=== PATIENT | female | born 1990 | race Caucasian/White ===

== ENCOUNTER 2020-07-10 16:07 | Inpatient (IN) | payer SELFPAY ==
[2020-07-10] MEDS ORDERED: CARBOPROST TROMETHAMINE 250 MCG/ML 1 ML AMP IM PRN (16:30)
[2020-07-10] MEDS: LACTATED RINGERS 1,000 ML IV SCH (16:30)
[2020-07-10] MEDS ORDERED: LIDOCAINE 0.5% (PF) 5 MG/ML (50 ML SDV) SQ PRN (16:30)
[2020-07-10] MEDS ORDERED: METHYLERGONOVINE 0.2 MG/ML 1 ML AMP IM PRN (16:30)
[2020-07-10] MEDS ORDERED: TERBUTALINE 1 MG/ML VIAL SQ PRN (16:30)
[2020-07-10] MEDS ORDERED: OXYTOCIN 10 UNIT/ML 1 ML VIAL IM PRN (16:30)
[2020-07-10] MEDS ORDERED: AMPICILLIN 2,000 MG in SODIUM CHLORIDE 0.9% 100 ML IVPB STA (16:33)
[2020-07-10 16:38] LABS: Basophils % (A) 0 %; Eosinophils # (A) 0.1 k/uL (0-0.7); Eosinophils % (A) 1 %; HCT 34.3 % (34.0-46.0); Lymphocytes # (A) 2.8 k/uL (1.0-4.8); Lymphocytes % (A) 21 %; MCH 26.5 pg (25.0-35.0); MCHC 31.9 g/dL (31.0-37.0); MCV 82.9 fL (80.0-100.0); Mean Platelet Volume 7.3; Monocytes # (A) 0.6 k/uL (0-1.0); Monocytes % (A) 5 %; Neutrophils # (A) 9.5 k/uL (1.3-7.7); Neutrophils % (A) 71 %; Platelet Count 399 k/uL (150-450); Poikilocytosis Slight; RBC 4.14 m/uL (3.80-5.40); RDW 15.5 % (11.5-15.5); WBC 13.4 k/uL (3.8-10.6)
[2020-07-10 16:58] LABS: Appearance,Urine Cloudy (Clear); Bacteria,Urine Rare /hpf; Bilirubin,Urine Negative (Negative); Blood,Urine Large (Negative); Color,Urine Yellow; Glucose,Urine (UA) Negative (Negative); Ketones,Urine Negative (Negative); Leukocyte Esterase,Urine Large (Negative); Mucus,Urine Occasional /hpf; Nitrite,Urine Negative (Negative); Protein,Urine 1+ (Negative); RBC,Urine >182 /hpf (0-5); Specific Gravity,Urine 1.011 (1.001-1.035); Sperm,Urine Rare /hpf; Squamous Epithelial Cell,Urine 1 /hpf (0-4); Urobilinogen,Urine <2.0 mg/dL (<2.0); WBC,Urine 52 /hpf (0-5)
--- NOTE | 2020-07-10 16:58 | P.HPOB ---
History of Present Illness H&P Date: 07/10/20 Chief Complaint: Term , labor This is a 21-year-old 005 that presents to labor and delivery with complaints of regular painful contractions. Patient states she has not received care during this . Patient states other heart disease were uncomplicated with vaginal deliveries. Patient denies loss of fluid or vaginal bleeding. Patient recently moved to the area but had not received care prior to moving to the area. labs are unknown at this time She does deny any history of receiving antibiotics during labor, and is unsure if she had group beta strep with any other pregnancies. Patient states she was diagnosed with COVID-19 approximately 17 days ago Review of Systems Constitutional: Denies chills, Denies fatigue, Denies fever Ears, nose, mouth and throat: Denies headache Cardiovascular: Reports leg edema Respiratory: Denies dyspnea Gastrointestinal: Denies constipation, Denies diarrhea, Denies nausea, Denies vomiting Genitourinary: Reports Past Medical History Past Medical History: No Reported History History of Any Multi-Drug Resistant Organisms: None Reported Additional Past Surgical History / Comment(s): eye sx 2015 Past Anesthesia/Blood Transfusion Reactions: No Reported Reaction Past Psychological History: Anxiety Smoking Status: Current every day smoker - Past Family History Mother Family Medical History: Congestive Heart Failure (CHF), COPD, Thyroid Disorder Medications and Allergies Home Medications Medication Instructions Recorded Confirmed Type No Known Home Medications 07/10/20 07/10/20 History Allergies Allergy/AdvReac Type Severity Reaction Status Date / Time No Known Allergies Allergy Verified 07/10/20 16:23 Exam Osteopathic Statement: *. No significant issues noted on an osteopathic structural exam other than those noted in the History and Physical/Consult. 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 Results Result Diagrams: 07/10/20 16:20 07/10/20 16:20 Abnormal Lab Results - Last 24 Hours (Table) 07/10/20 Range/Units 16:20 WBC 13.4 H (3.8-10.6) k/uL Hgb 11.0 L (11.4-16.0) gm/dL Neutrophils # 9.5 H (1.3-7.7) k/uL Assessment and Plan (1) Term Current Visit: Yes Status: Acute Code(s): Z34.90 - ENCNTR FOR SUPRVSN OF NORMAL , UNSP, UNSP TRIMESTER SNOMED Code(s): 89616634 (2) No care in current Current Visit: Yes Status: Acute Code(s): O09.30 - SUPRVSN OF PREG W INSUFFICIENT ANTENAT CARE, UNSP TRIMESTER SNOMED Code(s): 105860276 Plan: 29-year-old at presumed term gestation ( per patient) presents in active labor. Patient has not received care during this , labs are drawn IV ampicillin is begun. Anticipate spontaneous vaginal delivery.
[2020-07-10 17:04] LABS: Amphetamine Screen,Urine Not Detected (NotDetected); Barbiturate Screen,Urine Not Detected (NotDetected); Benzodiazepines Screen,Urine Not Detected (NotDetected); Cocaine Screen,Urine Not Detected (NotDetected); Methadone Screen, Urine Not Detected (NotDetected); Opiate Screen,Urine Not Detected (NotDetected); Oxycodone Screen, Urine Not Detected (NotDetected); Phencyclidine Screen,Urine Not Detected (NotDetected); Tricyclic Antidepressant,Urine Not Detected (NotDetected); Urn Cannabinoid Scrn Not Detected (NotDetected)
[2020-07-10] MEDS ORDERED: SIMETHICONE 80 MG CHEWABLE PO PRN (17:56)
[2020-07-10] MEDS ORDERED: diphenhydrAMINE 50 MG CAP PO PRN (17:56)
[2020-07-10] MEDS ORDERED: HYDROCORTISONE 2.5% RECTAL CREAM 30 GM TUBE RECTAL PRN (17:56)
[2020-07-10] MEDS ORDERED: ZOLPIDEM 5 MG TAB PO PRN (17:56)
[2020-07-10] MEDS ORDERED: diphenhydrAMINE 50 MG/ML 1 ML VIAL IVP PRN ×2 (17:56)
[2020-07-10] MEDS ORDERED: BENZOCAINE/MENTHOL SPRAY 1 GM/SPRAY AEROSOL TOPICAL PRN (17:56)
[2020-07-10] MEDS ORDERED: LANOLIN CREAM 5 GM TUBE TOPICAL PRN (17:56)
[2020-07-10] MEDS ORDERED: diphenhydrAMINE 25 MG CAP PO PRN (17:56)
[2020-07-10] MEDS ORDERED: OXYTOCIN 30 UNITS/500 ML NS 30 UNIT in SALINE 1 500ML.BAG IV SCH (18:00)
--- NOTE | 2020-07-10 18:00 | P.PROBDLV ---
Vaginal Delivery Note - . Vaginal Delivery Note: This is a 29-year-old 005 at presumed term gestation per patient that presents to labor and delivery with complaints of regular painful contractions. Patient stated contractions started a few hours ago she denied vaginal bleeding or loss of fluid. Patient on admission was noted to be 5 cm with a bulging bag of water, vertex presentation was confirmed with the ultrasound. Patient was admitted to labor and delivery ampicillin was begun. Patient did not receive care prior to presenting to the hospital. Patient denies any concerns with her other prior pregnancies. Patient underwent amniotomy clear fluid was obtained. Patient progressed to complete began pushing and had a normal spontaneous vaginal delivery of a viable female infant at 1649, Apgars of 99 at one and 5 minutes respectively. Weight is pending at this time. After two-minute delayed the umbilical cord is doubly clamped and cut and the was handed to the maternal abdomen. The placenta was delivered spontaneously intact with a three-vessel cord being noted. On inspection the patient's vaginal vault no lacerations were appreciated. The uterus is noted be firm and below the umbilicus. Estimated blood loss 100 mL. Patient and tolerated delivery well and are resting comfortably
[2020-07-10] MEDS: IBUPROFEN 600 MG TAB PO SCH (18:16)
[2020-07-10] MEDS ORDERED: AMPICILLIN 1,000 MG in SODIUM CHLORIDE 0.9% 50 ML IVPB SCH (20:45)
[2020-07-10] MEDS: ACETAMINOPHEN TAB 325 MG TAB PO PRN (20:58)
[2020-07-10] MEDS: SENNOSIDES-DOCUSATE SODIUM 1 EACH TAB PO SCH (20:58)
[2020-07-11] MEDS: IBUPROFEN 600 MG TAB PO SCH ×4 (00:10→20:21)
[2020-07-11 03:12] LABS: Hepatitis B Surface Antigen Non-Reactive (Non-Reactive)
[2020-07-11 06:02] LABS: HIV 2 AB Non-Reactive (Non-Reactive); HIV AB P24 Non-Reactive (Non-Reactive); HIV P24 AG Non-Reactive (Non-Reactive)
[2020-07-11] MEDS: LACTATED RINGERS 1,000 ML IV SCH (06:39)
[2020-07-11] MEDS: ACETAMINOPHEN TAB 325 MG TAB PO PRN ×3 (08:26→23:13)
[2020-07-11] MEDS: SENNOSIDES-DOCUSATE SODIUM 1 EACH TAB PO SCH ×2 (08:27→22:15)
--- NOTE | 2020-07-11 08:59 | P.PNOBGVD ---
Subjective - Subjective Principal diagnosis: PPD 1 MSVD Interval history: Patient is feeling well this morning. She states her pain is controlled with ibuprofen/Tylenol. Her lochia is moderate. She is tolerating a regular diet without nausea or vomiting. Patient reports: Reports appetite normal, Reports voiding normally, Reports pain well controlled, Reports ambulating normally [place]: doing well Objective - Latest Vital Signs Latest vital signs: Vital Signs Temp Pulse Resp BP Pulse Ox 07/11/20 08:00 98.2 F 82 18 139/70 07/11/20 04:00 97.7 F 70 16 117/71 07/11/20 00:00 98.3 F 82 16 140/79 07/10/20 20:02 97.7 F 81 16 133/85 07/10/20 19:33 97.3 F L 70 16 143/84 07/10/20 19:32 97.7 F 70 16 143/84 07/10/20 18:55 71 16 149/87 07/10/20 18:40 82 16 148/83 07/10/20 18:25 94 17 167/88 07/10/20 18:10 98.0 F 77 17 141/87 07/10/20 17:53 65 17 135/89 07/10/20 17:21 97.0 F L 80 17 126/83 98 07/10/20 16:50 97.0 F L 80 17 126/83 98 Intake and Output 07/10/20 07/11/20 07/11/20 22:59 06:59 14:59 Intake Total 487.600 Output Total 100 Balance 387.600 Intake: Intake, IV Titration 487.600 Amount Oxytocin 30 Units/500 ml 487.600 Ns 30 unit In Saline 1 500ml.bag @ Per Protocol IV .Q0M [facility] Rx#:[id number] Output: Estimated Blood Loss 100 Other: # Voids 1 2 2 Weight 81.647 kg - Exam Extremities: Present: normal, edema Abdomen: Present: normal appearance Uterus: Present: normal, firm - Labs Labs: Abnormal Lab Results - Last 24 Hours (Table) 07/10/20 07/10/20 Range/Units 16:20 16:52 WBC 13.4 H (3.8-10.6) k/uL Hgb 11.0 L (11.4-16.0) gm/dL Neutrophils # 9.5 H (1.3-7.7) k/uL Urine Appearance Cloudy H (Clear) Urine Protein 1+ H (Negative) Urine Blood Large H (Negative) Ur Leukocyte Esterase Large H (Negative) Urine RBC >182 H (0-5) /hpf Urine WBC 52 H (0-5) /hpf Urine Bacteria Rare H (None) /hpf Urine Mucus Occasional H (None) /hpf Assessment and Plan (1) Term Current Visit: Yes Status: Acute Code(s): Z34.90 - ENCNTR FOR SUPRVSN OF NORMAL , UNSP, UNSP TRIMESTER SNOMED Code(s): 93139278 (2) No care in current Current Visit: Yes Status: Acute Code(s): O09.30 - SUPRVSN OF PREG W INSUFFICIENT ANTENAT CARE, UNSP TRIMESTER SNOMED Code(s): 311217950 (3) Status post normal vaginal delivery Current Visit: Yes Status: Acute Code(s): LMW4967 - SNOMED Code(s): 617625966 Plan: 29-year-old G6 now P6 status post normal spontaneous vaginal delivery. Patient is doing well this morning. Awaiting social work consult. Patient did discussed with the nurse last night that she is homeless. She does not have custody of all of her children. We will await social work recommendations.
[2020-07-12] MEDS: IBUPROFEN 600 MG TAB PO SCH ×3 (02:19→21:36)
[2020-07-12] MEDS: ACETAMINOPHEN TAB 325 MG TAB PO PRN (08:35)
[2020-07-12 08:54] VITALS: RESP 16
--- NOTE | 2020-07-12 10:43 | P.DS ---
Providers Date of admission: 07/10/20 16:42 Expected date of discharge: 07/12/20 Attending physician: Geovanna Viramontes Primary care physician: Stated None - Discharge Diagnosis(es) (1) No care in current Current Visit: Yes Status: Acute (2) Status post normal vaginal delivery Current Visit: Yes Status: Acute (3) Term Current Visit: Yes Status: Acute Hospital Course: This is a 29-year-old 6 now para 6 woman who presented at term in spontaneous active labor. She had received no care for this . Following admission she underwent an uncomplicated and rapid delivery of a live born female over an intact perineum weighing 7 lbs. 2 oz. with Apgars of 9 at 1 minute and 9 at 5 minutes. The patient's laboratory data returned without abnormalities. Her blood type is Rh+. 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 The patient the had stable vital signs with no evidence of hypertension in the period. She was ambulating and voiding with out difficulty, her lochia is minimal and she denies pain. She is on the therefore discharged home pending discharge of the and CPS and social work evaluation's. Patient Condition at Discharge: Good Plan - Discharge Summary New Discharge Prescriptions: New Ibuprofen [Motrin] 600 mg PO Q6H tab Acetaminophen Tab [Tylenol] 650 mg PO Q4HR PRN tab PRN Reason: Mild Pain Or Fever >= 100.5 Discharge Medication List Acetaminophen Tab [Tylenol] 650 mg PO Q4HR PRN tab 07/12/20 [Rx] Ibuprofen [Motrin] 600 mg PO Q6H tab 07/12/20 [Rx] Follow up Appointment(s)/Referral(s): Geovanna Viramontes DO [Doctor of Osteopathic Medicine] - 4 Weeks Activity/Diet/Wound Care/Special Instructions: Follow-up in the office in 6 weeks . Call with any concerning signs or symptoms including heavy vaginal bleeding, severe abdominal pain, fever gre ater than 101, swelling or redness of the lower extremities, foul vaginal discharge, or signs of depression. Nothing in the vagina for 6 weeks after delivery, specifically no intercourse. Discharge Disposition: HOME SELF-CARE
[2020-07-12 16:31] VITALS: BP 138/83; PULSE 77; TEMP 98.2
[2020-07-12] MEDS: SENNOSIDES-DOCUSATE SODIUM 1 EACH TAB PO SCH (21:38)
[2020-07-14 13:05] LABS: N. gonorrhoeae,PCR Negative (Neg,Equiv); Neisseria Source Urine
[2020-07-14 13:06] LABS: C. trachomatis,PCR Negative (Neg,Equiv); Chlamydia trachomatis Source Urine
== END 2020-07-12 22:00 | disposition home or self-care (01) | DRG 805 ==
LOC: FBPOP 16:07 → 4FBP 16:42
PROVIDERS: ADMIT Obstetrics & Gynecology Obstetrics; ATTEND Obstetrics & Gynecology Obstetrics
PROC: 10E0XZZ Delivery of Products of Conception, External Approach (ICD-10-PCS; principal; 2020-07-10)
DX: O98.52 Other viral diseases complicating childbirth (principal); U07.1 COVID-19; Z37.0 Single live birth; Z3A.00 Weeks of gestation of pregnancy not specified; F17.200 Nicotine dependence, unspecified, uncomplicated; F41.9 Anxiety disorder, unspecified; O99.334 Smoking (tobacco) complicating childbirth; O99.344 Other mental disorders complicating childbirth; Z82.49 Family history of ischemic heart disease and other diseases of the circulatory system; Z82.5 Family history of asthma and other chronic lower respiratory diseases
CPT/HCPCS: 80306; 81001; 82947; 85025; 86762; 86780; 86850; 86900; 86901; 87340; 87390; 87491; 87591; 88307

== ENCOUNTER 2021-09-24 06:21 | Emergency (ER) | payer BC ==
[2021-09-24 06:27] VITALS: TEMP 98.1
[2021-09-24] MEDS ORDERED: HYDROmorphone 1 MG/ML 1 ML SYRINGE IM STA (06:37)
[2021-09-24 07:33] LABS: Appearance,Urine Clear (Clear); Bilirubin,Urine Negative (Negative); Blood,Urine Negative (Negative); Color,Urine Light Yellow; Glucose,Urine (UA) Negative (Negative); Ketones,Urine Negative (Negative); Leukocyte Esterase,Urine Trace (Negative); Mucus,Urine Rare /hpf; Nitrite,Urine Negative (Negative); PH, Urine 6.5 (5.0-8.0); Protein,Urine Negative (Negative); RBC,Urine 1 /hpf (0-5); Specific Gravity,Urine 1.017 (1.001-1.035); Squamous Epithelial Cell,Urine 6 /hpf (0-4); Urobilinogen,Urine <2.0 mg/dL (<2.0); WBC,Urine 2 /hpf (0-5)
--- NOTE | 2021-09-24 07:35 | ED ---
ENT HPI - General Chief complaint: Dental/Oral Stated complaint: Dental Pain, Abd Pain Time Seen by Provider: 09/24/21 06:23 Source: patient Mode of arrival: ambulatory Limitations: no limitations - History of Present Illness Initial comments: 30-year-old female presents emergency Department chief complaint abdominal pain, abdominal pain. Patient states sent in from her week she is scheduled to see the dentist in one week. She states she has impacted, infected right lower molar. She states she worked all night states that she started developing ab dominal discomfort from what she believes is taking Tylenol Motrin. She states the pain is actually improving it's very mild. No fevers or chills no dysuria denies any chance and no diarrhea no constipation. - Related Data Previous Rx's Medication Instructions Recorded Acetaminophen Tab [Tylenol] 650 mg PO Q4HR PRN tab 07/12/20 Ibuprofen [Motrin] 600 mg PO Q6H tab 07/12/20 Ibuprofen [Motrin] 600 mg PO Q8HR PRN #20 tab 09/24/21 Penicillin V Potassium [Pen Vee K] 500 mg PO QID #40 tablet 09/24/21 Allergies Allergy/AdvReac Type Severity Reaction Status Date / Time No Known Allergies Allergy Verified 09/24/21 06:27 Review of Systems ROS Statement: Those systems with pertinent positive or pertinent negative responses have been documented in the HPI. ROS Other: All systems not noted in ROS Statement are negative. Past Medical History Past Medical History: No Reported History History of Any Multi-Drug Resistant Organisms: None Reported Additional Past Surgical History / Comment(s): eye sx 2014 Past Anesthesia/Blood Transfusion Reactions: No Reported Reaction Past Psychological History: Anxiety Smoking Status: Current every day smoker Past Alcohol Use History: None Reported Past Drug Use History: None Reported - Past Family History Mother Family Medical History: Congestive Heart Failure (CHF), COPD, Thyroid Disorder General Exam Limitations: no limitations General appearance: alert, in no apparent distress Head exam: Present: atraumatic, normocephalic, normal inspection Eye exam: Present: normal appearance, PERRL, EOMI. Absent: scleral icterus, conjunctival injection, periorbital swelling ENT exam: Present: mucous membranes moist. Absent: normal exam, normal oropharynx (Dental fracture, impacted right lower, mild erythema no drainable abscess) Neck exam: Present: normal inspection, full ROM. Absent: tenderness, meningismus, lymphadenopathy Respiratory exam: Present: normal lung sounds bilaterally. Absent: respiratory distress, wheezes, rales, rhonchi, stridor Cardiovascular Exam: Present: regular rate, normal rhythm, normal heart sounds. Absent: systolic murmur, diastolic murmur, rubs, gallop, clicks GI/Abdominal exam: Present: soft, tenderness (Very minimal suprapubic), normal bowel sounds. Absent: distended, guarding, rebound, rigid Back exam: Absent: CVA tenderness (R), CVA tenderness (L) Neurological exam: Present: alert, oriented X3 Course Vital Signs 09/24/21 06:22 Temperature 98.1 F Pulse Rate 73 Respiratory 18 Rate Blood Pressure 133/87 O2 Sat by Pulse 100 Oximetry Medical Decision Making - Medical Decision Making Patient was treated for underlying dental infection from dental pain. She does have follow-up with current follow-up with dentist. Patient has negative urinalysis. Patient's abdominal pain is resolving. Patient is comfortable discharged at this time return if symptoms worsen or any other concerns. - Lab Data Lab Results 09/24/21 09/24/21 Range/Units 06:38 06:38 Urine Color Light Yellow Urine Appearance Clear (Clear) Urine pH 6.5 (5.0-8.0) Ur Specific [place] 1.017 (1.001-1.035) Urine Protein Negative (Negative) Urine Glucose (UA) Negative (Negative) Urine Ketones Negative (Negative) Urine Blood Negative (Negative) Urine Nitrite Negative (Negative) Urine Bilirubin Negative (Negative) Urine Urobilinogen <2.0 (<2.0) mg/dL Ur Leukocyte Esterase Trace H (Negative) Urine RBC 1 (0-5) /hpf Urine WBC 2 (0-5) /hpf Ur Squamous Epith Cells 6 H (0-4) /hpf Urine Mucus Rare H (None) /hpf Urine HCG, Qual Not Detected (Not Detectd) Disposition Clinical Impression: Fracture of tooth, Toothache Disposition: HOME SELF-CARE Condition: Stable Instructions (If sedation given, give patient instructions): Toothache (ED) Additional Instructions: Please return to the Emergency Department if symptoms worsen or any other concerns. Prescriptions: Ibuprofen [Motrin] 600 mg PO Q8HR PRN #20 tab PRN Reason: Pain Penicillin V Potassium [Pen Vee K] 500 mg PO QID #40 tablet Is patient prescribed a controlled substance at d/c from ED?: No Referrals: None,Stated [Primary Care Provider] - 1-2 days Time of Disposition: 07:40
[2021-09-24] MEDS ORDERED: ACET/COD 300 MG/30 MG STARTER PACK 6 TAB BTL PO STA (07:38)
[2021-09-24 07:50] VITALS: BP 110/87; PULSE 78; RESP 16
== END 2021-09-24 07:49 | disposition home or self-care (01) ==
LOC: EC 06:21
DX: S02.5XXA Fracture of tooth (traumatic), initial encounter for closed fracture (principal); F17.200 Nicotine dependence, unspecified, uncomplicated; X58.XXXA Exposure to other specified factors, initial encounter
CPT/HCPCS: 81001; 81025; 99284; 96372; J1170

== ENCOUNTER 2022-08-17 21:42 | Emergency (ER) | payer BC, OTHER ==
[2022-08-17 22:05] VITALS: TEMP 98.1
[2022-08-18] MEDS ORDERED: DEXAMETHASONE SOD PHOSPHATE 10 MG/ML 1 ML VIAL IM STA (01:43)
[2022-08-18] MEDS ORDERED: KETOROLAC 15 MG/ML 1 ML VIAL IM STA (01:43)
[2022-08-18] MEDS ORDERED: ORPHENADRINE 30 MG/ML 2 ML VIAL IM STA (01:43)
--- NOTE | 2022-08-18 02:55 | ED ---
Back Pain HPI - General Chief Complaint: Back Pain/Injury Stated Complaint: Sharp Pain in back Time Seen by Provider: 08/18/22 01:28 Source: patient Limitations: no limitations - History of Present Illness Initial Comments: Patient is a 31-year-old female presenting with chief complaint of lower back pain. Pain is been ongoing for 2 days. She denies any distinct injury but does admit to recently lifting a heavy couch. She admits to pain with range of motion. Pain spans across the entire back width. No loss of bowel or bladder control or saddle paresthesia. No dysuria or hematuria. No fevers or chills. No nausea or vomiting. No analgesic medications taken at home. No abdominal pain, chest pain, difficulty breathing. - Related Data Previous Rx's Medication Instructions Recorded Acetaminophen Tab [Tylenol] 650 mg PO Q4HR PRN tab 07/12/20 Ibuprofen [Motrin] 600 mg PO Q6H tab 07/12/20 Ibuprofen [Motrin] 600 mg PO Q8HR PRN #20 tab 09/24/21 Penicillin V Potassium [Pen Vee K] 500 mg PO QID #40 tablet 09/24/21 Cyclobenzaprine [Flexeril] 10 mg PO TID PRN #15 tab 08/18/22 Lidocaine 5% Patch [Lidoderm 5% 1 patch TOPICAL DAILY PRN #30 patch 08/18/22 Patch] Allergies Allergy/AdvReac Type Severity Reaction Status Date / Time No Known Allergies Allergy Verified 09/24/21 06:27 Review of Systems ROS Statement: Those systems with pertinent positive or pertinent negative responses have been documented in the HPI. ROS Other: All systems not noted in ROS Statement are negative. Past Medical History Past Medical History: No Reported History History of Any Multi-Drug Resistant Organisms: None Reported Additional Past Surgical History / Comment(s): eye sx 2015 Past Anesthesia/Blood Transfusion Reactions: No Reported Reaction Past Psychological History: Anxiety Smoking Status: Current every day smoker Past Alcohol Use History: None Reported Past Drug Use History: None Reported - Past Family History Mother Family Medical History: Congestive Heart Failure (CHF), COPD, Thyroid Disorder General Exam Limitations: no limitations General appearance: alert, in no apparent distress Head exam: Present: atraumatic, normocephalic, normal inspection Eye exam: Present: normal appearance, EOMI. Absent: scleral icterus, periorbital swelling Neck exam: Present: normal inspection, full ROM Back exam: Present: normal inspection, paraspinal tenderness Neurological exam: Present: alert, oriented X3, CN II-XII intact Psychiatric exam: Present: normal affect, normal mood Skin exam: Present: warm, dry, intact, normal color. Absent: rash Course Vital Signs 08/17/22 22:02 Temperature 98.1 F Pulse Rate 100 Respiratory 20 Rate Blood Pressure 124/79 O2 Sat by Pulse 99 Oximetry Medical Decision Making - Medical Decision Making Was pt. sent in by a medical professional or institution (, PA, SECURITY GUARDS DISPATCHER, urgent care, hospital, or shelter...) When possible be specific @ -No Did you speak to anyone other than the patient for history (EMS, parent, family, police, friend...)? What history was obtained from this source @ -No Did you review nursing and triage notes (agree or disagree)? Why? @ -I reviewed and agree with nursing and triage notes Were old charts reviewed (outside hosp., previous admission, EMS record, old EKG, old radiological studies, urgent care reports/EKG's, shelter records)? Report findings @ -No old charts were reviewed Differential Diagnosis (chest pain, altered mental status, abdominal pain women, abdominal pain men, vaginal bleeding, weakness, fever, dyspnea, syncope, headache, dizziness, GI bleed, back pain, seizure, CVA, palpatations, mental health, musculoskeletal)? @ - [facility] Differential Back Pain: Strain, zoster, cauda equina syndrome, epidural abscess, vertebral osteomyelitis, discitis, fracture, subluxation, disc herniation, DJD, spinal stenosis, dissection, AAA, pancreatitis, peptic ulcer disease, pyelonephritis, kidney stone this is not meant to be an all-inclusive list. EKG interpreted by me (3pts min.). @ -As above X-rays interpreted by me (1pt min.). @ -None done CT interpreted by me (1pt min.). @ -None done U/S interpreted by me (1pt. min.). @ -None done What testing was considered but not performed or refused? (CT, X-rays, U/S, labs)? Why? @ -None What meds were considered but not given or refused? Why? @ -None Did you discuss the management of the patient with other professionals (professionals i.e. , PA, SECURITY GUARDS DISPATCHER, lab, RT, psych nurse, social services, sewer pipe offbearer, teacher, security officer, case resource manager)? Give summary @ -No Was smoking cessation discussed for >3mins.? @ -No Was critical care preformed (if so, how long)? @ -No Were there social determinants of health that impacted care today? How? (Homelessness, low income, unemployed, alcoholism, drug addiction, transportation, low edu. Level, literacy, decrease access to med. care, fdc, rehab)? @ -No Was there de-escalation of care discussed even if they declined (Discuss DNR or withdrawal of care, Hospice)? DNR status @ -No What co-morbidities impacted this encounter? (DM, HTN, Smoking, COPD, CAD, Cancer, CVA, ARF, Chemo, Hep., AIDS, mental health diagnosis, sleep apnea, morbid obesity)? @ -None Was patient admitted / discharged? Hospital course, mention meds given and route, prescriptions, significant lab abnormalities, going to OR and other pertinent info. @ -Patient is a 31-year-old female presenting with chief complaint of lower back pain. Admits to pain with range of motion. No red flag symptoms. There is paraspinal muscle tenderness on palpation. Patient reports improvement after Toradol, Decadron, and Norflex. She is provided with muscle relaxer for home as well as lidocaine patches. Follow-up with PCP. Report back to ER with any new or worsening symptoms. Discussed return parameters and answered all questions. Patient conveyed verbal understanding and agreed to the plan. I discussed this case in detail with my attending Dr. Andrews Undiagnosed new problem with uncertain prognosis? @ -No Drug Therapy requiring intensive monitoring for toxicity (Heparin, Nitro, Insulin, Cardizem)? @ -No Were any procedures done? @ -No Diagnosis/symptom? @ -Lower back strain Acute, or Chronic, or Acute on Chronic? @ -Acute Uncomplicated (without systemic symptoms) or Complicated (systemic symptoms)? @ -Uncomplicated Side effects of treatment? @ -No Exacerbation, Progression, or Severe Exacerbation? @ -No Poses a threat to life or bodily function? How? (Chest pain, [place], MS, pneumonia, PE, COPD, DKA, ARF, appy, cholecystitis, CVA, Diverticulitis, Homicidal, Suicidal, threat to staff... and all critical care pts) @ -No Disposition Clinical Impression: Strain of lumbar region Disposition: HOME SELF-CARE Condition: Good Instructions (If sedation given, give patient instructions): Acute Low Back Pain (ED) Additional Instructions: Follow-up with PCP. Report back to ER with any new or worsening symptoms. Take medication as prescribed. Do not take cyclobenzaprine before driving or operating heavy machinery as it may cause drowsiness. Prescriptions: Cyclobenzaprine [Flexeril] 10 mg PO TID PRN #15 tab PRN Reason: Spasms Lidocaine 5% Patch [Lidoderm 5% Patch] 1 patch TOPICAL DAILY PRN #30 patch PRN Reason: Pain Is patient prescribed a controlled substance at d/c from ED?: No Referrals: None,Stated [Primary Care Provider] - 1-2 days Time of Disposition: 02:55
[2022-08-18 03:40] VITALS: BP 113/68; PULSE 76; RESP 16
[2022-08-18] MEDS ORDERED: LIDOCAINE 5% PATCH TOPICAL SCH (09:00)
== END 2022-08-18 03:39 | disposition home or self-care (01) ==
LOC: EC 21:42
DX: S39.012A Strain of muscle, fascia and tendon of lower back, initial encounter (principal); F17.200 Nicotine dependence, unspecified, uncomplicated; X50.0XXA Overexertion from strenuous movement or load, initial encounter
CPT/HCPCS: 99283; 96372 ×3; J1100; J2360; J1885

== ENCOUNTER 2022-08-23 15:04 | Emergency (ER) | payer BC, OTHER ==
[2022-08-23 15:17] VITALS: TEMP 98.1
[2022-08-23 16:24] LABS: Anisocytosis Slight; Basophils # (A) 0.1 k/uL (0-0.2); Basophils % (A) 1 %; Eosinophils # (A) 0.2 k/uL (0-0.7); Eosinophils % (A) 3 %; HCT 40.5 % (34.0-46.0); HGB 13.2 gm/dL (11.4-16.0); Lymphocytes # (A) 2.8 k/uL (1.0-4.8); Lymphocytes % (A) 29 %; MCH 26.5 pg (25.0-35.0); MCHC 32.6 g/dL (31.0-37.0); MCV 81.2 fL (80.0-100.0); Mean Platelet Volume 7.1; Monocytes # (A) 0.6 k/uL (0-1.0); Monocytes % (A) 6 %; Neutrophils % (A) 61 %; Platelet Count 367 k/uL (150-450); RBC 4.98 m/uL (3.80-5.40); RDW 16.1 % (11.5-15.5); WBC 9.8 k/uL (3.8-10.6)
--- NOTE | 2022-08-23 16:24 | ED ---
Back Pain HPI - General Chief Complaint: Back Pain/Injury Stated Complaint: UNK WKS -BACK PAIN Time Seen by Provider: 08/23/22 16:02 Source: patient Limitations: no limitations - History of Present Illness Initial Comments: This patient is a 31-year-old woman who presents to have evaluation of low back and low abdomen pain. Patient started having symptoms a little over a week ago and was seen here 6 days ago. At that time she was given nonsteroidal and lidocaine patch. The patient states that on the day following her visit here she checked a test and found that she was positive. She stopped the medications she was given. She states that the back pain did not really improve. She indicates the lumbar area. She states there is pain on both sides but worse on the left. She also is having some pelvic pains greater on the left than right. She started having some spotting over the past day and therefore presents to have evaluation here. MD Complaint: back pain Onset/Timin -: week(s) Similar Symptoms Previously: Yes Place: home Radiation: abdomen Severity: moderate Quality: sharp Consistency: intermittent Improves With: none Worsens With: movement Associated Symptoms: other (Vaginal spotting) Treatments Prior to Arrival: other - Related Data Previous Rx's Medication Instructions Recorded Acetaminophen Tab [Tylenol] 650 mg PO Q4HR PRN tab 07/12/20 Ibuprofen [Motrin] 600 mg PO Q6H tab 07/12/20 Ibuprofen [Motrin] 600 mg PO Q8HR PRN #20 tab 09/24/21 Penicillin V Potassium [Pen Vee K] 500 mg PO QID #40 tablet 09/24/21 Cyclobenzaprine [Flexeril] 10 mg PO TID PRN #15 tab 08/18/22 Lidocaine 5% Patch [Lidoderm 5% 1 patch TOPICAL DAILY PRN #30 patch 08/18/22 Patch] Allergies Allergy/AdvReac Type Severity Reaction Status Date / Time No Known Allergies Allergy Verified 08/23/22 15:17 Review of Systems ROS Statement: Those systems with pertinent positive or pertinent negative responses have been documented in the HPI. ROS Other: All systems not noted in ROS Statement are negative. Constitutional: Denies: fever, chills, weakness Respiratory: Denies: cough, dyspnea Cardiovascular: Denies: chest pain, palpitations, edema Gastrointestinal: Reports: as per HPI. Denies: abdominal pain, nausea, vomiting, diarrhea, constipation Genitourinary: Reports: as per HPI, abnormal menses. Denies: dysuria, hematuria Musculoskeletal: Reports: as per HPI, back pain Skin: Denies: rash Neurological: Denies: headache, weakness Hematological/Lymphatic: Denies: easy bleeding Past Medical History Past Medical History: No Reported History History of Any Multi-Drug Resistant Organisms: None Reported Additional Past Surgical History / Comment(s): eye sx 2015 Past Anesthesia/Blood Transfusion Reactions: No Reported Reaction Past Psychological History: Anxiety Smoking Status: Current every day smoker Past Alcohol Use History: None Reported Past Drug Use History: None Reported - Past Family History Mother Family Medical History: Congestive Heart Failure (CHF), COPD, Thyroid Disorder General Exam Limitations: no limitations General appearance: alert, in no apparent distress Head exam: Present: atraumatic, normocephalic Eye exam: Present: normal appearance. Absent: scleral icterus, conjunctival injection Neck exam: Present: normal inspection, full ROM Respiratory exam: Present: normal lung sounds bilaterally. Absent: respiratory distress, wheezes, rales, rhonchi, stridor Cardiovascular Exam: Present: regular rate, normal rhythm, normal heart sounds. Absent: systolic murmur, diastolic murmur, rubs, gallop GI/Abdominal exam: Present: soft. Absent: distended, tenderness, guarding, rebound, rigid, mass Extremities exam: Present: normal inspection, normal capillary refill. Absent: pedal edema, calf tenderness Back exam: Present: normal inspection, muscle spasm, paraspinal tenderness. Absent: CVA tenderness (R), CVA tenderness (L), vertebral tenderness Neurological exam: Present: alert Skin exam: Present: warm, dry, intact, normal color. Absent: rash Course Vital Signs 08/23/22 08/23/22 15:14 18:02 Temperature 98.1 F Pulse Rate 93 67 Respiratory 20 18 Rate Blood Pressure 113/70 106/66 O2 Sat by Pulse 100 98 Oximetry Medical Decision Making - Medical Decision Making This patient is a 31-year-old woman here with low back pain and some spotting. The patient did have laboratory evaluation and was due to have a pelvic ultrasound, but she became upset with the wait for ultrasound and decided to leave. Was pt. sent in by a medical professional or institution (, PA, COMMUNITY EDUCATION COORDINATOR, urgent care, hospital, or [facility]...) When possible be specific @ -[No] Did you speak to anyone other than the patient for history (EMS, parent, family, police, friend...)? What history was obtained from this source @ -[No] Did you review nursing and triage notes (agree or disagree)? Why? @ -[I reviewed and agree with nursing and triage notes] Were old charts reviewed (outside hosp., previous admission, EMS record, old EKG, old radiological studies, urgent care reports/EKG's, [facility] records)? Report findings @ -[No old charts were reviewed] Differential Diagnosis (chest pain, altered mental status, abdominal pain women, abdominal pain men, vaginal bleeding, weakness, fever, dyspnea, syncope, headache, dizziness, GI bleed, back pain, seizure, CVA, palpatations, mental health, musculoskeletal)? @ -[Differential Back Pain: Strain, zoster, cauda equina syndrome, epidural abscess, vertebral osteomyelitis , discitis, fracture, subluxation, disc herniation, DJD, spinal stenosis, dissection, AAA, pancreatitis, peptic ulcer disease, pyelonephritis, kidney stone, this is not meant to be an all-inclusive list. Differential Abdominal Pain Women: Appendicitis, Cholecystitis, diverticulosis, ischemic bowel, pancreatitis, hepatitis, UTI, gastroenteritis, AAA, incarcerated hernia, bowel obstruction, constipation, inflammatory bowel, hepatitis, peptic ulcer disease, splenic infarction, perforated viscus, vulvitis, ovarian torsion, PID, kidney stone, placenta abruption, this is not meant to be an all-inclusive list EKG interpreted by me (3pts min.). @ -[ X-rays interpreted by me (1pt min.). @ -[None done] CT interpreted by me (1pt min.). @ -[None done] U/S interpreted by me (1pt. min.). @ -[None done] What testing was considered but not performed or refused? (CT, X-rays, U/S, labs)? Why? @ -[None] What meds were considered but not given or refused? Why? @ -[None] Did you discuss the management of the patient with other professionals (professionals i.e. , PA, COMMUNITY EDUCATION COORDINATOR, lab, RT, psych nurse, social media assistant, street openings inspector, teacher, contact officer, case management associate)? Give summary @ -[No] Was smoking cessation discussed for >3mins.? @ -[No] Was critical care preformed (if so, how long)? @ -[No] Were there social determinants of health that impacted care today? How? (Homelessness, low income, unemployed, alcoholism, drug addiction, transportation, low edu. Level, literacy, decrease access to med. care, longterm, rehab)? @ -[No] Was there de-escalation of care discussed even if they declined (Discuss DNR or withdrawal of care, Hospice)? DNR status @ -[No] What co-morbidities impacted this encounter? (DM, HTN, Smoking, COPD, CAD, Cancer, CVA, ARF, Chemo, Hep., AIDS, mental health diagnosis, sleep apnea, morbid obesity)? @ -[ Was patient admitted / discharged? Hospital course, mention meds given and route, prescriptions, significant lab abnormalities, going to OR and other pertinent info. @ -[The patient's left without completing treatment, she was to have ultrasound performed but did not want to wait. Undiagnosed new problem with uncertain prognosis? @ -[No] Drug Therapy requiring intensive monitoring for toxicity (Heparin, Nitro, Insulin, Cardizem)? @ -[No] Were any procedures done? @ -[No] Diagnosis/symptom? @ -[Acute low back pain Acute, or Chronic, or Acute on Chronic? @ -[Acute Uncomplicated (without systemic symptoms) or Complicated (systemic symptoms)? @ -[Uncomplicated Side effects of treatment? @ -[No] Exacerbation, Progression, or Severe Exacerbation? @ -[No] Poses a threat to life or bodily function? How? (Chest pain, [place], [place], pneumonia, PE, COPD, DKA, ARF, appy, cholecystitis, CVA, Diverticulitis, Homicidal, Suicidal, threat to staff... and all critical care pts) @ -[Undetermined - Lab Data Result diagrams: 08/23/22 16:14 08/23/22 16:14 Lab Results 08/23/22 08/23/22 08/23/22 Range/Units 16:14 16:14 16:14 WBC 9.8 (3.8-10.6) k/uL RBC 4.98 (3.80-5.40) m/uL Hgb 13.2 (11.4-16.0) gm/dL Hct 40.5 (34.0-46.0) % MCV 81.2 (80.0-100.0) fL MCH 26.5 (25.0-35.0) pg MCHC 32.6 (31.0-37.0) g/dL RDW 16.1 H (11.5-15.5) % Plt Count 367 (150-450) k/uL MPV 7.1 Neutrophils % 61 % Lymphocytes % 29 % Monocytes % 6 % Eosinophils % 3 % Basophils % 1 % Neutrophils # 6.0 (1.3-7.7) k/uL Lymphocytes # 2.8 (1.0-4.8) k/uL Monocytes # 0.6 (0-1.0) k/uL Eosinophils # 0.2 (0-0.7) k/uL Basophils # 0.1 (0-0.2) k/uL Anisocytosis Slight Sodium 134 L (137-145) mmol/L Potassium 4.6 (3.5-5.1) mmol/L Chloride 104 (98-107) mmol/L Carbon Dioxide 22 (22-30) mmol/L Anion Gap 8 mmol/L BUN 7 (7-17) mg/dL Creatinine 0.50 L (0.52-1.04) mg/dL Est GFR (CKD-EPI)AfAm >90 (>60 ml/min/1.73 sqM) Est GFR (CKD-EPI)NonAf >90 (>60 ml/min/1.73 sqM) Glucose 82 (74-99) mg/dL Calcium 9.0 (8.4-10.2) mg/dL Total Bilirubin 0.4 (0.2-1.3) mg/dL AST 17 (14-36) U/L ALT 13 (4-34) U/L Alkaline Phosphatase 51 (38-126) U/L Total Protein 6.7 (6.3-8.2) g/dL Albumin 3.9 (3.5-5.0) g/dL HCG, Quant mIU/mL Urine HCG, Qual Detected (Not Detectd) 08/23/22 Range/Units 16:46 WBC (3.8-10.6) k/uL RBC (3.80-5.40) m/uL Hgb (11.4-16.0) gm/dL Hct (34.0-46.0) % MCV (80.0-100.0) fL MCH (25.0-35.0) pg MCHC (31.0-37.0) g/dL RDW (11.5-15.5) % Plt Count (150-450) k/uL MPV Neutrophils % % Lymphocytes % % Monocytes % % Eosinophils % % Basophils % % Neutrophils # (1.3-7.7) k/uL Lymphocytes # (1.0-4.8) k/uL Monocytes # (0-1.0) k/uL Eosinophils # (0-0.7) k/uL Basophils # (0-0.2) k/uL Anisocytosis Sodium (137-145) mmol/L Potassium (3.5-5.1) mmol/L Chloride (98-107) mmol/L Carbon Dioxide (22-30) mmol/L Anion Gap mmol/L BUN (7-17) mg/dL Creatinine (0.52-1.04) mg/dL Est GFR (CKD-EPI)AfAm (>60 ml/min/1.73 sqM) Est GFR (CKD-EPI)NonAf (>60 ml/min/1.73 sqM) Glucose (74-99) mg/dL Calcium (8.4-10.2) mg/dL Total Bilirubin (0.2-1.3) mg/dL AST (14-36) U/L ALT (4-34) U/L Alkaline Phosphatase (38-126) U/L Total Protein (6.3-8.2) g/dL Albumin (3.5-5.0) g/dL HCG, Quant 33651.5 mIU/mL Urine HCG, Qual (Not Detectd) Disposition Clinical Impression: Low back pain, Disposition: LEFT AGAINST MEDICAL ADVICE Condition: Undetermined Is patient prescribed a controlled substance at d/c from ED?: No Referrals: None,Stated [Primary Care Provider] - 1-2 days
[2022-08-23 16:34] LABS: ALT 13 U/L (4-34); AST 17 U/L (14-36); African American GFR (CKD) >90 (>60 ml/min/1.73 sqM); Albumin 3.9 g/dL (3.5-5.0); Alkaline Phosphatase 51 U/L (38-126); Anion Gap 8 mmol/L; Blood Urea Nitrogen 7 mg/dL (7-17); Carbon Dioxide 22 mmol/L (22-30); Chloride 104 mmol/L (98-107); Glucose 82 mg/dL (74-99); Non-African American GFR(CKD) >90 (>60 ml/min/1.73 sqM); Potassium 4.6 mmol/L (3.5-5.1); Sodium 134 mmol/L (137-145); Total Bilirubin 0.4 mg/dL (0.2-1.3); Total Protein 6.7 g/dL (6.3-8.2)
[2022-08-23 18:03] VITALS: BP 106/66; PULSE 67; RESP 18
== END 2022-08-23 20:23 | disposition left against medical advice (07) ==
LOC: EC 15:04
DX: O99.891 Other specified diseases and conditions complicating pregnancy (principal); M54.50 Low back pain, unspecified; O99.340 Other mental disorders complicating pregnancy, unspecified trimester; F41.9 Anxiety disorder, unspecified; O99.330 Smoking (tobacco) complicating pregnancy, unspecified trimester; F17.200 Nicotine dependence, unspecified, uncomplicated; Z3A.00 Weeks of gestation of pregnancy not specified; Z53.29 Procedure and treatment not carried out because of patient's decision for other reasons
CPT/HCPCS: 36415; 80053; 81025; 84702; 85025; 99283

== ENCOUNTER 2022-09-27 11:25 | Emergency (ER) | payer BC, OTHER ==
[2022-09-27 11:45] VITALS: RESP 18
[2022-09-27] MEDS ORDERED: LIDOCAINE 5% PATCH TOPICAL ONE (12:34)
[2022-09-27] MEDS ORDERED: ACETAMINOPHEN TAB 500 MG TAB PO STA (12:34)
[2022-09-27 13:16] LABS: Appearance,Urine Cloudy (Clear); Bacteria,Urine Rare /hpf; Bilirubin,Urine Negative (Negative); Blood,Urine Negative (Negative); Color,Urine Yellow; Glucose,Urine (UA) Negative (Negative); Ketones,Urine Negative (Negative); Leukocyte Esterase,Urine Moderate (Negative); Mucus,Urine Rare /hpf; Nitrite,Urine Negative (Negative); Protein,Urine Trace (Negative); RBC,Urine 2 /hpf (0-5); Specific Gravity,Urine 1.015 (1.001-1.035); Squamous Epithelial Cell,Urine 22 /hpf (0-4); Urobilinogen,Urine <2.0 mg/dL (<2.0); WBC,Urine 10 /hpf (0-5)
[2022-09-27] MEDS ORDERED: CIPROFLOXACIN-DEXAMETH 0.3-0.1% DROPS 7.5 ML BTL LEFT EAR STA (13:29)
--- NOTE | 2022-09-27 13:32 | ED ---
ENT HPI - General Chief complaint: ENT Stated complaint: back pain,Ear pain Time Seen by Provider: 09/27/22 12:19 Source: patient, RN notes reviewed Mode of arrival: ambulatory Limitations: no limitations - History of Present Illness Initial comments: This is a 31-year-old female who presents to the emergency department for left ear pain/drainage and left mid back pain. States that the ear pain started about 3 weeks ago. She was on a course of steroids and Augmentin. Believes that pain might have started to improve, but then worsened again. She is also noticing brown drainage coming out of the ear and feels like there is fluid in it. The back pain started this morning. Denies any injuries. Patient is and approximately 11 weeks . She took ibuprofen for her pain which was only mildly beneficial. Denies any urinary symptoms. Denies any fevers, chills, sore throat, cough, dyspnea, chest pain, palpitations, abdominal pain, nausea, vomiting, diarrhea, or headaches. MD complaint: ear pain Onset/Timin -: week(s) Location: L ear - Related Data Previous Rx's Medication Instructions Recorded Acetaminophen Tab [Tylenol] 650 mg PO Q4HR PRN tab 07/12/20 Ibuprofen [Motrin] 600 mg PO Q6H tab 07/12/20 Ibuprofen [Motrin] 600 mg PO Q8HR PRN #20 tab 09/24/21 Penicillin V Potassium [Pen Vee K] 500 mg PO QID #40 tablet 09/24/21 Cyclobenzaprine [Flexeril] 10 mg PO TID PRN #15 tab 08/18/22 Lidocaine 5% Patch [Lidoderm 5% 1 patch TOPICAL DAILY PRN #30 patch 08/18/22 Patch] Cephalexin [Keflex] 500 mg PO Q8HR 7 Days #21 cap 09/27/22 Allergies Allergy/AdvReac Type Severity Reaction Status Date / Time No Known Allergies Allergy Verified 09/27/22 11:40 Review of Systems ROS Statement: Those systems with pertinent positive or pertinent negative responses have been documented in the HPI. ROS Other: All systems not noted in ROS Statement are negative. Past Medical History Past Medical History: No Reported History History of Any Multi-Drug Resistant Organisms: None Reported Additional Past Surgical History / Comment(s): eye sx 2014 Past Anesthesia/Blood Transfusion Reactions: No Reported Reaction Past Psychological History: Anxiety Smoking Status: Current every day smoker Past Alcohol Use History: None Reported Past Drug Use History: None Reported - Past Family History Mother Family Medical History: Congestive Heart Failure (CHF), COPD, Thyroid Disorder General Exam Limitations: no limitations General appearance: alert, in no apparent distress Head exam: Present: atraumatic, normocephalic, normal inspection ENT exam: Present: other (Tenderness to palpation of the left tragus and with movement of the pinna. Canal erythema. No TM erythema or bulging. ) Respiratory exam: Present: normal lung sounds bilaterally. Absent: respiratory distress, wheezes, rales, rhonchi, stridor Cardiovascular Exam: Present: regular rate, normal rhythm, normal heart sounds. Absent: systolic murmur, diastolic murmur, rubs, gallop, clicks Back exam: Present: normal inspection, full ROM. Absent: tenderness Neurological exam: Present: alert, oriented X3, CN II-XII intact Psychiatric exam: Present: normal affect, normal mood Skin exam: Present: warm, dry, intact, normal color. Absent: rash Course Vital Signs 09/27/22 09/27/22 11:40 13:56 Temperature 98.5 F 0 F L Pulse Rate 103 H 101 H Respiratory 18 18 Rate Blood Pressure 131/87 130/86 O2 Sat by Pulse 100 100 Oximetry Medical Decision Making - Medical Decision Making This is a 31-year-old female who presents to the emergency department for back pain and left ear pain. Was pt. sent in by a medical professional or institution? @ -No Did you speak to anyone other than the patient for history? @ -No Did you review nursing and triage notes? @ -Yes, and I agree, it is accurate with regards to the patient's symptoms. Were old charts reviewed? @ -No Differential Diagnosis? @ -Differential Ear Pain: Otitis media, otitis externa, eustachian tube dysfunction, allergic rhinitis, barotrauma, bullous myringitis, this is not meant to be an all-inclusive list. EKG interpreted by me (3pts min.)? @ -Not obtained X-rays interpreted by me (1pt min.)? @ -Not obtained CT interpreted by me (1pt min.)? @ -Not obtained U/S interpreted by me (1pt. min.)? @ -Not obtained What testing was considered but not performed? (CT, X-rays, U/S, labs)? Why? @ -None What meds were considered but not given? Why? @ -None Did you discuss the management of the patient with other professionals? @ -No Did you reconcile home meds? @ -No Was smoking cessation discussed for >3mins.? @ -No Was critical care preformed (if so, how long)? @ -No Were there social determinants of health that impacted care today? How? (Homelessness, low income, unemployed, alcoholism, drug addiction, transportation, low edu. Level, literacy, decrease access to med. care, prison, rehab)? @ -No Was there de-escalation of care discussed even if they declined? (Discuss DNR or withdrawal of care, Hospice)? @ -No What co-morbidities impacted this encounter? (DM, HTN, Smoking, COPD, CAD, Cancer, CVA, Hep., AIDS, mental health diagnosis, sleep apnea, morbid obesity)? @ - Was patient admitted / discharged? @ -Discharged. Physical examination of the left TM reveals canal erythema and she has tenderness with palpation of the tragus and with movement of the pinna, suggestive of otitis externa. Ciprodex drops provided in the emergency department for further management. However, otitis externa does not necessarily explain all of her ear pain symptoms. Advised that she will need to see ENT for further evaluation. Case management tried to make her an appointment, however her insurance requires a referral from her PCP, and the patient is not yet established with a PCP and case management was unable to reach the office for an appointment. Patient is instructed to continue contacting them herself. With regards to the back pain, we did obtained a UA. While this was contaminated, WBCs and bacteria were present and a prescription for Keflex was provided. Shared decision making took place regarding imaging, and because there was no injury and because she is , imaging was deferred. Advised Tylenol as needed for pain relief and she was instructed on the need to avoid NSAIDs like Ibuprofen that she was reportedly taking. Undiagnosed new problem with uncertain prognosis? @ -None Drug Therapy requiring intensive monitoring for toxicity (Heparin, Nitro, Insulin, Cardizem)? @ -None Were any procedures done? @ -None Diagnosis/symptom? @ -Left otitis externa, back pain Acute, or Chronic, or Acute on Chronic? @ -Acute Uncomplicated (without systemic symptoms) or Complicated (systemic symptoms)? @ -Uncomplicated Side effects of treatment? @ -None Exacerbation, Progression, or Severe Exacerbation] @ -Not applicable Poses a threat to life or bodily function? @ -No Return precautions reviewed in depth, the patient is instructed to return to the emergency department with any new, worsening, or concerning symptoms. Patient verbalized understanding. This case was discussed in detail with the attending ED physician, Dr. Carlson. Presentation, findings, and treatment plan discussed in detail as well. - Lab Data Lab Results 09/27/22 Range/Units 12:45 Urine Color Yellow Urine Appearance Cloudy H (Clear) Urine pH 7.0 (5.0-8.0) Ur Specific [place] 1.015 (1.001-1.035) Urine Protein Trace H (Negative) Urine Glucose (UA) Negative (Negative) Urine Ketones Negative (Negative) Urine Blood Negative (Negative) Urine Nitrite Negative (Negative) Urine Bilirubin Negative (Negative) Urine Urobilinogen <2.0 (<2.0) mg/dL Ur Leukocyte Esterase Moderate H (Negative) Urine RBC 2 (0-5) /hpf Urine WBC 10 H (0-5) /hpf Ur Squamous Epith Cells 22 H (0-4) /hpf Urine Bacteria Rare H (None) /hpf Urine Mucus Rare H (None) /hpf Disposition Clinical Impression: Otitis externa, Back pain, Bacteriuria during Disposition: HOME SELF-CARE Instructions (If sedation given, give patient instructions): Earache (ED), Back Pain (ED) Additional Instructions: Return to the emergency department with any new, worsening, or concerning symptoms. Take the antibiotic as prescribed for 7 days. Use the eardrops as 4 drops to the left ear twice daily for 7 days. Follow up with your primary care provider in 1-2 days and discuss a referral to ENT. Make sure you are only taking Tylenol for pain relief. You may also use [id number] creams/gels. Prescriptions: Cephalexin [Keflex] 500 mg PO Q8HR 7 Days #21 cap Is patient prescribed a controlled substance at d/c from ED?: No Referrals: Jin Castillo DO [Doctor of Osteopathic Medicine] - 1-2 days Bakari Larson DO [REFERRING] - 1-2 days (Office is closed due to Holiday, please contact to establish with a Primary Care Provider and for ENT referral.)
[2022-09-27 13:58] VITALS: BP 130/86; PULSE 101; TEMP 0
== END 2022-09-27 13:48 | disposition home or self-care (01) ==
LOC: EC 11:25
DX: H60.92 Unspecified otitis externa, left ear (principal); R82.71 Bacteriuria; M54.9 Dorsalgia, unspecified; F17.200 Nicotine dependence, unspecified, uncomplicated; Z86.59 Personal history of other mental and behavioral disorders
CPT/HCPCS: 81001; 99283

== ENCOUNTER 2023-01-16 19:02 | Emergency (ER) | payer BC, OTHER ==
[2023-01-16 19:14] VITALS: RESP 18
[2023-01-16] MEDS ORDERED: AMOXIC-POT CLAV 875-125MG 1 EACH TAB PO STA (19:47)
[2023-01-16] MEDS ORDERED: KETOROLAC 15 MG/ML 1 ML VIAL IM STA (19:47)
[2023-01-16] MEDS ORDERED: AMOXIC-POT CLAV 875MG STARTER PACK 2 TAB BTL PO STA (19:47)
--- NOTE | 2023-01-16 19:52 | ED ---
ENT HPI - General Chief complaint: Dental/Oral Stated complaint: dental pain Time Seen by Provider: 01/16/23 19:16 Source: patient Mode of arrival: ambulatory Limitations: no limitations - History of Present Illness Initial comments: 32-year-old female presenting with chief complaint of dental pain. Pain is located on the right side. It has been ongoing for several days. Patient is currently unable to get in with tenderness. No difficulty breathing or swallowing. No fevers or neck pain. No drooling or trismus. - Related Data Previous Rx's Medication Instructions Recorded Acetaminophen Tab [Tylenol] 650 mg PO Q4HR PRN tab 07/12/20 Ibuprofen [Motrin] 600 mg PO Q6H tab 07/12/20 Ibuprofen [Motrin] 600 mg PO Q8HR PRN #20 tab 09/24/21 Penicillin V Potassium [Pen Vee K] 500 mg PO QID #40 tablet 09/24/21 Cyclobenzaprine [Flexeril] 10 mg PO TID PRN #15 tab 08/18/22 Lidocaine 5% Patch [Lidoderm 5% 1 patch TOPICAL DAILY PRN #30 patch 08/18/22 Patch] Cephalexin [Keflex] 500 mg PO Q8HR 7 Days #21 cap 09/27/22 Amoxic-Pot Clav 875-125Mg 1 tab PO Q12HR 10 Days #20 tab 01/16/23 [Augmentin 875-125] Allergies Allergy/AdvReac Type Severity Reaction Status Date / Time No Known Allergies Allergy Verified 01/16/23 19:14 Review of Systems ROS Statement: Those systems with pertinent positive or pertinent negative responses have been documented in the HPI. ROS Other: All systems not noted in ROS Statement are negative. Past Medical History Past Medical History: No Reported History History of Any Multi-Drug Resistant Organisms: None Reported Additional Past Surgical History / Comment(s): eye sx 2015 Past Anesthesia/Blood Transfusion Reactions: No Reported Reaction Past Psychological History: Anxiety Smoking Status: Current every day smoker Past Alcohol Use History: None Reported Past Drug Use History: None Reported - Past Family History Mother Family Medical History: Congestive Heart Failure (CHF), COPD, Thyroid Disorder General Exam Limitations: no limitations General appearance: alert, in no apparent distress Head exam: Present: atraumatic, normocephalic, normal inspection Eye exam: Present: normal appearance, EOMI Expanded Mouth exam: Present: tongue normal. Absent: drooling, trismus, muffled voice Teeth exam: Present: dental caries, fractured tooth #, dental tenderness # Throat exam: normal inspection Neck exam: Present: normal inspection, full ROM Respiratory exam: Absent: respiratory distress Neurological exam: Present: alert, oriented X3 Psychiatric exam: Present: normal affect, normal mood Skin exam: Present: warm, dry, intact, normal color. Absent: rash Course Vital Signs 01/16/23 01/16/23 19:13 20:35 Temperature 98.1 F 98.0 F Pulse Rate 107 H 92 Respiratory 18 18 Rate Blood Pressure 148/88 146/84 O2 Sat by Pulse 99 99 Oximetry Medical Decision Making - Medical Decision Making Was pt. sent in by a medical professional or institution (LOUIS Hernandez, PRESSROOM SUPERVISOR, urgent care, hospital, or custodial...) When possible be specific @ -No Did you speak to anyone other than the patient for history (EMS, parent, family, police, friend...)? What history was obtained from this source @ -No Did you review nursing and triage notes (agree or disagree)? Why? @ -I reviewed and agree with nursing and triage notes Were old charts reviewed (outside hosp., previous admission, EMS record, old EKG, old radiological studies, urgent care reports/EKG's, custodial records)? Report findings @ -No old charts were reviewed Differential Diagnosis (chest pain, altered mental status, abdominal pain women, abdominal pain men, vaginal bleeding, weakness, fever, dyspnea, syncope, headache, dizziness, GI bleed, back pain, seizure, CVA, palpatations, mental health, musculoskeletal)? @ -Differential includes toothache, dental abscess, Shaun's angina, this is not an all inclusive list EKG interpreted by me (3pts min.). @ -As above X-rays interpreted by me (1pt min.). @ -None done CT interpreted by me (1pt min.). @ -None done U/S interpreted by me (1pt. min.). @ -None done What testing was considered but not performed or refused? (CT, X-rays, U/S, labs)? Why? @ -None What meds were considered but not given or refused? Why? @ -None Did you discuss the management of the patient with other professionals (professionals i.e. , PA, PRESSROOM SUPERVISOR, lab, RT, psych nurse, social sciences lecturer, area loss prevention manager, teacher, grant officer, pillowcase cleaner)? Give summary @ -No Was smoking cessation discussed for >3mins.? @ -No Was critical care preformed (if so, how long)? @ -No Were there social determinants of health that impacted care today? How? (Homelessness, low income, unemployed, alcoholism, drug addiction, transportation, low edu. Level, literacy, decrease access to med. care, usp, rehab)? @ -No Was there de-escalation of care discussed even if they declined (Discuss DNR or withdrawal of care, Hospice)? DNR status @ -No What co-morbidities impacted this encounter? (DM, HTN, Smoking, COPD, CAD, Cancer, CVA, ARF, Chemo, Hep., AIDS, mental health diagnosis, sleep apnea, morbid obesity)? @ -None Was patient admitted / discharged? Hospital course, mention meds given and route, prescriptions, significant lab abnormalities, going to OR and other pertinent info. @ -32-year-old female presenting with chief complaint of dental pain. On physical examination a fractured tooth is noted is tender on palpation. No brawny induration or midline shift. No trismus or drooling. No difficulty breathing or swallowing. Some swelling to the jaw is noted. Patient will be treated with Augmentin and instructed to follow up with dentist. Follow-up with PCP. Report back to ER with any new or worsening symptoms. Discussed return parameters and answered all questions. Patient conveyed verbal understanding and agreed to the plan. I discussed this case in detail with my attending Dr. Regan Undiagnosed new problem with uncertain prognosis? @ -No Drug Therapy requiring intensive monitoring for toxicity (Heparin, Nitro, Insulin, Cardizem)? @ -No Were any procedures done? @ -No Diagnosis/symptom? @ -dental abscess Acute, or Chronic, or Acute on Chronic? @ -Acute Uncomplicated (without systemic symptoms) or Complicated (systemic symptoms)? @ -Uncomplicated Side effects of treatment? @ -No Exacerbation, Progression, or Severe Exacerbation? @ -No Poses a threat to life or bodily function? How? (Chest pain, USA, MD, pneumonia, PE, COPD, DKA, ARF, appy, cholecystitis, CVA, Diverticulitis, Homicidal, Suicidal, threat to staff... and all critical care pts) @ -No Disposition Clinical Impression: Dental abscess Disposition: HOME SELF-CARE Condition: Good Instructions (If sedation given, give patient instructions): Dental Abscess (ED) Additional Instructions: Please follow up with the [facility] dental clinic. [address] [place] [address]. Phone number for new patients or [phone] for existing patients. Prescriptions: Amoxic-Pot Clav 875-125Mg [Augmentin 875-125] 1 tab PO Q12HR 10 Days #20 tab Is patient prescribed a controlled substance at d/c from ED?: No Referrals: None,Stated [Primary Care Provider] - 1-2 days Time of Disposition: 19:52
[2023-01-16 20:43] VITALS: BP 146/84; PULSE 92; TEMP 98
== END 2023-01-16 20:35 | disposition home or self-care (01) ==
LOC: EC 19:02
DX: K04.7 Periapical abscess without sinus (principal); K03.81 Cracked tooth; F17.200 Nicotine dependence, unspecified, uncomplicated
CPT/HCPCS: 99282; 96372; J1885

== ENCOUNTER 2023-03-08 05:26 | Inpatient (IN) | payer BC, OTHER ==
[2023-03-08] MEDS ORDERED: METHYLERGONOVINE 0.2 MG/ML 1 ML AMP IM PRN (05:42)
[2023-03-08] MEDS ORDERED: CITRIC ACID-SODIUM CITRATE 15 ML CUP PO ONE (05:42)
[2023-03-08] MEDS ORDERED: CARBOPROST TROMETHAMINE 250 MCG/ML 1 ML AMP IM PRN (05:42)
[2023-03-08] MEDS ORDERED: OXYTOCIN 10 UNIT/ML 1 ML VIAL IM PRN (05:42)
[2023-03-08] MEDS ORDERED: TRANEXAMIC 1,000 MG/100ML-NACL 1,000 MG in EMPTY BAG 1 BAG IV PRN (05:42)
[2023-03-08] MEDS ORDERED: miSOPROStoL 200 MCG TAB PO PRN (05:42)
[2023-03-08 06:01] LABS: Basophils # (A) 0.1 k/uL (0-0.2); Basophils % (A) 1 %; Eosinophils # (A) 0.2 k/uL (0-0.7); Eosinophils % (A) 1 %; HCT 26.9 % (34.0-46.0); HGB 8.6 gm/dL (11.4-16.0); Hypochromasia Moderate; Lymphocytes # (A) 3.1 k/uL (1.0-4.8); Lymphocytes % (A) 21 %; MCH 26.9 pg (25.0-35.0); Mean Platelet Volume 8.2; Monocytes # (A) 0.6 k/uL (0-1.0); Monocytes % (A) 4 %; Neutrophils # (A) 10.5 k/uL (1.3-7.7); Neutrophils % (A) 70 %; Platelet Count 280 k/uL (150-450); RDW 14.6 % (11.5-15.5)
[2023-03-08] MEDS ORDERED: fentaNYL (PF) 50 MCG/ML 2 ML AMP ONE (06:03)
[2023-03-08] MEDS ORDERED: MIDAZOLAM 2 MG/2 ML VIAL ONE (06:03)
[2023-03-08] MEDS ORDERED: ONDANSETRON 4 MG/2 ML VIAL ONE (06:03)
[2023-03-08] MEDS ORDERED: OXYTOCIN 30 UNITS/500 ML NS BAG IV ONE (06:03)
[2023-03-08] MEDS ORDERED: SUCCINYLCHOLINE CHLORIDE 200 MG/10 ML VIAL IV ONE (06:03)
[2023-03-08] MEDS ORDERED: DEXAMETHASONE SOD PHOSPHATE 4 MG/ML 1 ML VIAL ONE (06:03)
[2023-03-08] MEDS ORDERED: PROPOFOL 10 MG/ML 20 ML VIAL IV ONE (06:03)
--- NOTE | 2023-03-08 06:45 | P.HPOB ---
History of Present Illness H&P Date: 03/08/23 Chief Complaint: Placental abruption 32-year-old presents at 34 weeks and 5 days about an hour after thinking her water broke but it was actually blood coming out into the toilet. This started at 4:30 this morning and she presented to the hospital around 5:30. Patient is brody every 2-4 minutes. heart tones 140 with some deep variable decelerations to 60. I was called to come assess the patient. When I presented to the hospital the patient was in triage with a Escamilla catheter and IV placed. heart tones were 140 with moderate variability. Cervical exam was 2 cm dilated, 80% effaced, -2 station. Patient was still brody every 1-2 minutes. The blood loss had slowed but was still present. I discussed with the patient her that she was having a placental abruption and was likely to need very quickly. The patient was refusing section at this time stating that she wanted her to come back with her no her what. It is our hospital policy that if the patient is going to be put under general anesthesia that family wait in waiting room. I explained to the patient that though the baby looked like its heart tones were okay at the moment at any moment the heart tones could go down again and not come back up. She was informed her baby could with further delay. This is a patient of Dr. Elia Nelson so I went out to the desk to call him for assistance. He was physically at the desk as he had just arrived, and when informed what was happening, he again explained the situation to the the patient and her who both did give her verbal consent for section under general anesthesia. Review of Systems All systems: negative Constitutional: Denies chills, Denies fever Eyes: denies blurred vision, denies pain Ears, nose, mouth and throat: Denies headache, Denies sore throat Cardiovascular: Denies chest pain, Denies shortness of breath Respiratory: Denies cough Gastrointestinal: Denies abdominal pain, Denies diarrhea, Denies nausea, Denies vomiting Genitourinary: Denies dysuria, Denies hematuria Musculoskeletal: Denies myalgias Integumentary: Denies pruritus, Denies rash Neurological: Denies numbness, Denies weakness Psychiatric: Denies anxiety, Denies depression Endocrine: Denies fatigue, Denies weight change Past Medical History Past Medical History: No Reported History Additional Past Medical History / Comment(s): 6 previous vaginal deliveries. Blood type is O+, antibodies negative, rubella immune, hepatitis B and C negative, HIV nonreactive. History of Any Multi-Drug Resistant Organisms: None Reported Additional Past Surgical History / Comment(s): eye sx 2014 Past Anesthesia/Blood Transfusion Reactions: No Reported Reaction Past Psychological History: Anxiety, Bipolar, Schizophrenia Smoking Status: Current every day smoker Past Alcohol Use History: None Reported Past Drug Use History: None Reported - Past Family History Mother Family Medical History: Congestive Heart Failure (CHF), COPD, Thyroid Disorder Medications and Allergies Home Medications Medication Instructions Recorded Confirmed Type Acetaminophen Tab [Tylenol] 650 mg PO Q4HR PRN tab 07/12/20 Rx Ibuprofen [Motrin] 600 mg PO Q6H tab 07/12/20 Rx Ibuprofen [Motrin] 600 mg PO Q8HR PRN #20 tab 09/24/21 Rx Penicillin V Potassium [Pen Vee K] 500 mg PO QID #40 tablet 09/24/21 Rx Cyclobenzaprine [Flexeril] 10 mg PO TID PRN #15 tab 08/18/22 Rx Lidocaine 5% Patch [Lidoderm 5% 1 patch TOPICAL DAILY PRN #30 patch 08/18/22 Rx Patch] Cephalexin [Keflex] 500 mg PO Q8HR 7 Days #21 cap 09/27/22 Rx Amoxic-Pot Clav 875-125Mg 1 tab PO Q12HR 10 Days #20 tab 01/16/23 Rx [Augmentin 875-125] Allergies Allergy/AdvReac Type Severity Reaction Status Date / Time No Known Allergies Allergy Verified 03/08/23 05:41 Exam Osteopathic Statement: *. No significant issues noted on an osteopathic structural exam other than those noted in the History and Physical/Consult. Intake and Output 03/07/23 03/07/23 03/08/23 14:59 22:59 06:59 Other: Weight 97.976 kg Heart: Regular rate and rhythm Lungs: Clear to auscultation bilaterally Abdomen: Soft, tender but not firm. There is a bruise on the right side of her abdomen about 4 cm in diameter. Patient says she hit her belly on a door a few days ago. Extremities: Negative Homans sign Results Result Diagrams: 03/08/23 05:30 Abnormal Lab Results - Last 24 Hours (Table) 03/08/23 Range/Units 05:30 WBC 15.0 H (3.8-10.6) k/uL RBC 3.20 L (3.80-5.40) m/uL Hgb 8.6 L (11.4-16.0) gm/dL Hct 26.9 L (34.0-46.0) % Neutrophils # 10.5 H (1.3-7.7) k/uL Assessment and Plan (1) Grand multipara Current Visit: Yes Status: Acute Code(s): Z64.1 - PROBLEMS RELATED TO MULTIPARITY SNOMED Code(s): 94316549 (2) 34 weeks gestation of Current Visit: Yes Status: Acute Code(s): Z3A.34 - 34 WEEKS GESTATION OF SNOMED Code(s): 41270739 (3) Placental abruption in third trimester Current Visit: Yes Status: Acute Code(s): O45.93 - PREMATURE SEPARATION OF PLACENTA, UNSP, THIRD TRIMESTER SNOMED Code(s): 977390312 Plan: 1. Stat section under general anesthesia
[2023-03-08] MEDS ORDERED: LANOLIN CREAM 5 GM TUBE TOPICAL PRN (07:04)
[2023-03-08] MEDS ORDERED: diphenhydrAMINE 25 MG CAP PO PRN (07:04)
[2023-03-08] MEDS ORDERED: diphenhydrAMINE 50 MG/ML 1 ML VIAL IVP PRN (07:04)
[2023-03-08] MEDS ORDERED: ONDANSETRON 4 MG/2 ML VIAL IVP PRN (07:04)
[2023-03-08] MEDS ORDERED: ZOLPIDEM 5 MG TAB PO PRN (07:04)
[2023-03-08] MEDS ORDERED: NALOXONE 0.4 MG/ML 1 ML VIAL IV PRN (07:04)
[2023-03-08] MEDS ORDERED: METOCLOPRAMIDE 5 MG/ML 2 ML VIAL IVP PRN (07:04)
[2023-03-08] MEDS ORDERED: OXYTOCIN 30 UNITS/500 ML NS 30 UNIT in SALINE 1 500ML.BAG IV SCH (07:15)
[2023-03-08] MEDS: HYDROmorphone PCA 10 MG/50 ML BAG IV PRN ×2 (07:28→20:33)
--- NOTE | 2023-03-08 08:11 | P.OP ---
Date of Procedure: 03/08/23 Preoperative Diagnosis: #1: 34-5/7 week intrauterine . #2: Nonreassuring heart tones remote from delivery. #3: Clinical placental abruption Postoperative Diagnosis: Same Procedure(s) Performed: Emergent primary low transverse section Anesthesia: NADEEN Surgeon: Elia Nelson Support Staff #1: Leticia Goldman Estimated Blood Loss (ml): 800 Pathology: other (Placenta) Condition: stable Disposition: floor Indications for Procedure: Please see dictated H&P for intimate details of this patient's admission. In brief summary this is a 32-year-old 9 para 6 female who presented to labor and delivery after having onset of vaginal bleeding at 420 this morning. Patient states that she did hit her abdomen apparently a couple days ago. On admission patient's having vaginal bleeding and nonreassuring heart tones, category 3. Dr. Goldman assess the patient immediately recommended proceeding with section however the patient did refuse. Patient states that she would rather have her baby if her partner could not be therefore delivery. Upon my arrival to the unit I instructed the patient that we needed again to proceed with immediate section on the baby could possibly and at this point she consented to emergent section. Patient was therefore taken immediately to the operating room for immediate delivery and did understand risks and benefits. There was approximately 15 minute delay due to the patient's initial refusal for delivery. Operative Findings: This is a viable male infant Apgars 3 at 1 minute 6 and 5 minutes and 9 at 10 minutes. Infant has spontaneous respiration and good cry. There was approximately 1000 mL of placental abruption. Description of Procedure: This patient is immediately taken to the operating room after having a Escamilla catheter placed to straight drain and IV placed. She is laid in supine position. She has abdominal prep and drape. The appropriate timeout is done and after rapid sequence general endotracheal anesthesia a scalpel is taken and a Pfannenstiel skin incision is made. A second scalpel is taken down to the fascia and the fascia scored with a knife. Fascial incision extended bilaterally using the Cooper scissors. Fascia is then dissected off the rectus muscles sharply. Rectus muscles are the peritoneum identified and entered sharply. Peritoneal incision extended superior and inferior without difficulty. Bladder blade is placed. Bladder flap is developed. Scalpels and taken a low transverse uterine incision is made. I then enter the uterine cavity bluntly with a hemostat and there is loss of clear bloody fluid. With fundal pressure the infant's head is delivered through the incision mouth and nares are bulb suctioned and the rest of the infant's body is immediately delivered followed by large blood clots. There is approximately 50% placental abruption in approximately 1000 mL in the uterine cavity. The umbilical cord is immediately cut clamped and the is handed off to the nurses in attendance. The uterus is then externalized. The placenta is removed and sent to pathology. Uterine incision is then demarcated with Butler clamps and closed using 0 Vicryl running locked fashion 2 layers. Excellent hemostasis is noted. The bladder peritoneum was then reapproximated using a 3-0 Vicryl. Excess fluid is removed from the abdomen and pelvis. Uterus, tubes, ovaries appear normal for term gestation. Uterus placed back into the abdomen. The parietal peritoneum was then closed in 0 Vicryl running fashion. Rectus muscle reapproximate 0 Vicryl interrupted fashion. Fascia is then closed using 0 Vicryl in a running fashion. Fascial incision is intact and hemostatic. Subcutaneous tissues and closed using a 3-0 Vicryl. Skin is and closed using virgil. All counts are correct 3. There are no complications. was taken special care for evaluation the mother's taken to her birthing suite in satisfactory condition. We'll plan to proceed with transfusion of 2 units of blood due to hemoglobin of 8.5 prior to surgery and the estimated blood loss of 1800 including the abruption and blood loss itself.
[2023-03-08] MEDS: SENNOSIDES-DOCUSATE SODIUM 1 EACH TAB PO SCH (09:23)
[2023-03-08] MEDS: LACTATED RINGERS 1,000 ML IV SCH ×2 (12:04→16:01)
[2023-03-08] MEDS: ACETAMINOPHEN TAB 500 MG TAB PO SCH ×2 (12:32→16:02)
[2023-03-08 13:41] LABS: Appearance,Urine Clear (Clear); Bilirubin,Urine 1+ (Negative); Blood,Urine Negative (Negative); Color,Urine Yellow; Glucose,Urine (UA) Negative (Negative); Ketones,Urine Negative (Negative); Leukocyte Esterase,Urine Negative (Negative); Nitrite,Urine Negative (Negative); PH, Urine 6.5 (5.0-8.0); Protein,Urine Trace (Negative); Specific Gravity,Urine 1.015 (1.001-1.035); Urobilinogen,Urine 0.2 mg/dL (<2.0)
[2023-03-08 13:46] LABS: Hyaline Casts,Urine 1 /lpf (0-2); Mucus,Urine Rare /hpf; RBC,Urine 1 /hpf (0-5); Squamous Epithelial Cell,Urine 1 /hpf (0-4); WBC,Urine 3 /hpf (0-5)
[2023-03-08 13:47] LABS: Amphetamine Screen,Urine Not Detected (NotDetected); Barbiturate Screen,Urine Not Detected (NotDetected); Benzodiazepines Screen,Urine Not Detected (NotDetected); Cocaine Screen,Urine Not Detected (NotDetected); Methadone Screen, Urine Not Detected (NotDetected); Opiate Screen,Urine Not Detected (NotDetected); Oxycodone Screen, Urine Not Detected (NotDetected); Phencyclidine Screen,Urine Not Detected (NotDetected); Tricyclic Antidepressant,Urine Not Detected (NotDetected); Urn Cannabinoid Scrn Not Detected (NotDetected)
[2023-03-08] MEDS: KETOROLAC 15 MG/ML 1 ML VIAL IVP SCH ×2 (14:03→20:02)
[2023-03-08] MEDS: IBUPROFEN 600 MG TAB PO SCH (14:09)
--- NOTE | 2023-03-08 17:27 | P.MSEPDOC ---
Presenting Problems - Arrival Data Date of Arrival on Unit: 03/08/23 Time of Arrival on Unit: 05:25 Mode of Transport: Ambulatory - Complaint OB-Reason for Admission/Chief Complaint: Rule Out PROM, Vaginal Bleeding, Art Bleeding Medical History - Information : 9 Para: 6 Term: 6 : 0 Abortions: Spontaneous or Elective: 2 Number of Living Children: 6 - Gestational Age Gestational Age by [place] (wks/days): 34 Weeks and 5 Days - History Complications: Smoker Review of Systems - Review of Systems Constitutional: No problems Breast: No problems ENT: No problems Cardiovascular: No problems Respiratory: No problems Gastrointestinal: Diarrhea Genitourinary: No problems Musculoskeletal: No problems Neurological: No problems Skin: No problems Vital Signs - Temperature Temperature: 98.0 F Temperature Source: Oral - Pulse Right Supine Brachial Pulse Rate: 93 Pulse Assessment Method: Automatic Cuff - Respirations Respiratory Rate: 16 Oxygen Delivery Method: Room Air O2 Sat by Pulse Oximetry: 97 - Blood Pressure Right Arm Supine Blood Pressure: 126/85 Blood Pressure Mean: 98 Blood Pressure Source: Automatic Cuff Medical Screen Scoring - Cervical Exam Dilation (cm): 2.5 Effacement (%): 50 Station: -2 Membranes: Ruptured - Uterine Contractions Frequency From (mins): 1 Frequency To (mins): 1 Duration From (seconds): 50 Duration To (seconds): 60 Intensity: Strong Resting: Rigid to palpation - Assessment - Baby A Baseline FHR: 135 Heart Rate - NICHD Category: Category II (Indeterminate) NST: Non-reactive Physician Notification - Physician Notified Physician Notified Date: 03/08/23 Physician Notified Time: 05:36 Physician: Leticia Goldman New Order Received: Yes (Admit, on her way in) Maternal Triage Index - Maternal Triage Index Presenting for scheduled procedure w/no complaint: No - Stat/Priority 1 Stat Priority 1: Yes Provider Notified: Leticia Goldman Provider Notified Time: 05:36 Criteria Met for Priority 1: Signs of uterine rupture, art bleeding Disposition - Disposition OB Disposition: Admit, LDRP Suite I agree with the RN Medical Screening Exam: Yes Case reviewed; plan agreed upon as documented in EMR&OBIX.: Yes Diagnosis: SPOTTING COMPLICATING , THIRD TRIMESTER
[2023-03-09] MEDS: KETOROLAC 15 MG/ML 1 ML VIAL IVP SCH (02:06)
[2023-03-09] MEDS: SIMETHICONE 80 MG CHEWABLE PO PRN ×2 (02:18→07:38)
[2023-03-09] MEDS: ACETAMINOPHEN TAB 500 MG TAB PO SCH ×2 (02:23→12:02)
[2023-03-09] MEDS: SENNOSIDES-DOCUSATE SODIUM 1 EACH TAB PO SCH ×2 (02:25→07:38)
[2023-03-09] MEDS: IBUPROFEN 600 MG TAB PO SCH ×2 (02:25→07:40)
[2023-03-09 04:22] VITALS: RESP 18
--- NOTE | 2023-03-09 06:55 | P.PNOBGPC ---
Subjective - Subjective Patient reports: Reports appetite normal, Reports voiding normally, Reports pain well controlled, Reports ambulating normally : doing well, in NICU, transported Objective - Vital Signs Latest vital signs: Vital Signs Temp Pulse Pulse Resp BP BP Pulse Ox 03/09/23 04:00 98.4 F 84 18 144/77 99 03/09/23 00:00 98.1 F 102 H 17 127/70 97 03/08/23 20:00 98.2 F 95 17 129/69 95 03/08/23 17:27 98.0 F 93 16 126/85 97 03/08/23 15:40 98.0 F 93 16 126/85 97 03/08/23 12:10 96.8 F L 76 76 16 128/82 128/82 100 03/08/23 11:00 96.6 F L 90 16 127/66 100 03/08/23 10:42 96 16 120/80 03/08/23 10:30 96.7 F L 105 H 16 143/83 03/08/23 10:26 96.7 F L 97 16 125/68 97 03/08/23 09:00 97.3 F L 92 16 144/68 99 03/08/23 08:45 97.4 F L 89 16 139/71 99 03/08/23 08:27 83 16 151/77 96 03/08/23 08:25 85 16 151/77 03/08/23 08:15 97.6 F 93 16 129/72 03/08/23 08:06 95 16 129/69 95 03/08/23 07:51 78 16 125/58 96 03/08/23 07:36 98 16 145/88 100 03/08/23 07:23 71 16 151/80 100 03/08/23 07:00 96.5 F L 89 16 109/58 100 Intake and Output 03/08/23 03/08/23 03/09/23 14:59 22:59 06:59 Intake Total 310 Output Total 5725 900 Balance -1487 -900 Intake: Blood Product 310 Rc As-1 Unit 310 [id number] Rc As-1 Unit 0 [id number] Output: Urine 5400 900 Uretheral (Escamilla) 500 Output, Quantitative 325 Blood Loss Other: # Voids 1 3 - Exam Lungs: bilateral: normal Chest: Normal S1, Normal S2 Extremities: Present: normal Abdomen: Present: normal appearance, soft. Absent: distention, tenderness Incision: Present: normal, dry, intact Uterus: Present: normal, firm - Labs Labs: Abnormal Lab Results - Last 24 Hours (Table) 03/08/23 03/08/23 Range/Units 05:30 11:50 Urine Protein Trace H (Negative) Urine Mucus Rare H (None) /hpf Crossmatch See Detail Assessment and Plan Assessment: Postoperative day #1. Patient is feeling well vital signs are stable. She is afebrile. Baby was transferred yesterday secondary to prematurity and apparently started very well so she would like to be discharged to go see the baby. Patient is status post 2 units of blood secondary to large placental abruption and CBC is pending. Patient is ambulating and urinating without difficulty. Plan today is to check CBC, continue routine postoperative care, I'll reevaluate patient lunchtime and felt to be stable for discharge discharge her home at that time. (1) 34 weeks gestation of Current Visit: Yes Status: Acute Code(s): Z3A.34 - 34 WEEKS GESTATION OF SNOMED Code(s): 00016411 (2) Placental abruption in third trimester Current Visit: Yes Status: Acute Code(s): O45.93 - PREMATURE SEPARATION OF PLACENTA, UNSP, THIRD TRIMESTER SNOMED Code(s): 167866022
--- NOTE | 2023-03-09 07:06 | P.DS ---
Providers Date of admission: 03/08/23 05:49 Expected date of discharge: 03/09/23 Attending physician: Elia Nelson Primary care physician: Stated None - Discharge Diagnosis(es) (1) 34 weeks gestation of Current Visit: Yes Status: Acute (2) Placental abruption in third trimester Current Visit: Yes Status: Acute Hospital Course: Please see dictated H&P and delivery summary on this patient's admission. In brief summary this is a 32-year-old 9 para 6 female who presented to labor and delivery with sudden onset of vaginal bleeding and abdominal pain. Patient was immediately diagnosed with a placental abruption and subsequent a taken for emergent primary low transverse section for viable male . Please see dictated operative note She did receive 2 units of packed red blood cells secondary to low starting hemoglobin and the blood loss from her abruption. On post operative day #1 patient is doing very well and due to her baby being transferred requested discharge home. Patient was felt to be stable for discharge home follow up with my office on Tuesday for staple removal. Procedures: Emergent primary low transverse section Patient Condition at Discharge: Good Plan - Discharge Summary New Discharge Prescriptions: New Ibuprofen [Motrin] 600 mg PO Q6H #40 tab Amoxicillin 500 mg PO TID #21 cap oxyCODONE HCL [OxyIR] 5 mg PO Q6HR PRN #18 tab PRN Reason: Pain No Action Ibuprofen [Motrin] 600 mg PO Q6H tab Penicillin V Potassium [Pen Vee K] 500 mg PO QID #40 tablet Cyclobenzaprine [Flexeril] 10 mg PO TID PRN #15 tab PRN Reason: Spasms Lidocaine 5% Patch [Lidoderm 5% Patch] 1 patch TOPICAL DAILY PRN #30 patch PRN Reason: Pain Acetaminophen Tab [Tylenol] 650 mg PO Q4HR PRN tab PRN Reason: Mild Pain Or Fever >= 100.5 Ibuprofen [Motrin] 600 mg PO Q8HR PRN #20 tab PRN Reason: Pain Cephalexin [Keflex] 500 mg PO Q8HR 7 Days #21 cap Amoxic-Pot Clav 875-125Mg [Augmentin 875-125] 1 tab PO Q12HR 10 Days #20 tab Discharge Medication List Acetaminophen Tab [Tylenol] 650 mg PO Q4HR PRN tab 07/12/20 [Rx] Ibuprofen [Motrin] 600 mg PO Q6H tab 04/17/21 [Rx] Ibuprofen [Motrin] 600 mg PO Q8HR PRN #20 tab 09/24/21 [Rx] Penicillin V Potassium [Pen Vee K] 500 mg PO QID #40 tablet 09/24/21 [Rx] Cyclobenzaprine [Flexeril] 10 mg PO TID PRN #15 tab 08/18/22 [Rx] Lidocaine 5% Patch [Lidoderm 5% Patch] 1 patch TOPICAL DAILY PRN #30 patch 08/18/22 [Rx] Cephalexin [Keflex] 500 mg PO Q8HR 7 Days #21 cap 09/27/22 [Rx] Amoxic-Pot Clav 875-125Mg [Augmentin 875-125] 1 tab PO Q12HR 10 Days #20 tab 01/16/23 [Rx] Amoxicillin 500 mg PO TID #21 cap 03/09/23 [Rx] Ibuprofen [Motrin] 600 mg PO Q6H #40 tab 03/09/23 [Rx] oxyCODONE HCL [OxyIR] 5 mg PO Q6HR PRN #18 tab 03/09/23 [Rx] Follow up Appointment(s)/Referral(s): Elia Nelson MD [STAFF PHYSICIAN] - 04/20/23 11:15 am (Post Op Appointment 03-16-2023 at 09:45. Please stop by the office on Tuesday for staple removal as well.) Patient Instructions/Handouts: (DC), Placental Abruption (DC) Activity/Diet/Wound Care/Special Instructions: No heavy lifting or strenuous activity for 6 weeks. No intercourse or anything per vagina for 6 weeks. Please call if any fever, chills, excessive vaginal ble eding, and/or abdominal pain. Please also come to the office this Tuesday for staple removal. Discharge Disposition: HOME SELF-CARE
[2023-03-09 07:40] LABS: Basophils % (A) 0 %; Eosinophils # (A) 0.1 k/uL (0-0.7); Eosinophils % (A) 0 %; HCT 23.9 % (34.0-46.0); HGB 7.9 gm/dL (11.4-16.0); Hypochromasia Moderate; Lymphocytes # (A) 3.7 k/uL (1.0-4.8); Lymphocytes % (A) 21 %; MCH 28.1 pg (25.0-35.0); MCV 85.4 fL (80.0-100.0); Mean Platelet Volume 8.4; Monocytes # (A) 0.9 k/uL (0-1.0); Monocytes % (A) 5 %; Neutrophils # (A) 12.6 k/uL (1.3-7.7); Neutrophils % (A) 71 %; Platelet Count 213 k/uL (150-450); Poikilocytosis Moderate; RDW 15.3 % (11.5-15.5); WBC 17.8 k/uL (3.8-10.6)
[2023-03-09] MEDS ORDERED: FERROUS SULFATE 325 MG TAB PO SCH (09:30)
[2023-03-09 10:40] VITALS: BP 142/80; PULSE 85; TEMP 97.7
--- NOTE | 2023-03-11 11:43 | CDI ---
Documentation Clarification Form Date: 03/11/2023 11:30:11 AM From: Viktoriya Alas Phone: Admit Date: 03/08/2023 05:49:00 AM Patient Name: Kandice Zuñiga Visit Number: [id number] Discharge Date: 03/09/2023 12:40:00 PM ATTENTION: The Clinical Documentation Specialists (CDI) and [facility] Coding Staff appreciate your assistance in clarifying documentation. Please respond to the clarification below the line at the bottom and electronically sign. The CDI & [facility] Coding staff will review the response and follow-up if needed. Please note: Queries are made part of the Legal Health Record. If you have any questions, please contact the author of this message via ITS. Dr. Elia Nelson Your patient has low starting hemoglobin per DC Summary. Please clarify if there is an additional diagnosis related to this value. History/Risk Factors: 32yo F, Placental abruptionin third trimester, 34wks, heart tones 140 with some deep variable decelerations Clinical indicators: Hgb of 8.5 prior to surgery Estimatedblood lossof 1800 including the abruption andblood lossitself Hct 26.9 Treatment: 2 units of packed red blood cells Is there an additional diagnosis and/or clinical significance related to the above lab result/information? [ ] Acute blood loss anemia [ X] Iron deficiency anemia [ ] Other, please specify [ ] Unable to determine (Template Last Revised: April 2020) MTDD
== END 2023-03-09 12:40 | disposition home or self-care (01) | DRG 788 ==
LOC: FBPOP 05:26 → 4FBP 05:49
PROVIDERS: ADMIT Obstetrics & Gynecology; ATTEND Obstetrics & Gynecology
PROC: 30233N1 Transfusion of Nonautologous Red Blood Cells into Peripheral Vein, Percutaneous Approach (ICD-10-PCS; 2023-03-08)
PROC: 10D00Z1 Extraction of Products of Conception, Low, Open Approach (ICD-10-PCS; principal; 2023-03-08 06:08)
DX: O45.93 Premature separation of placenta, unspecified, third trimester (principal); O99.02 Anemia complicating childbirth; O76 Abnormality in fetal heart rate and rhythm complicating labor and delivery; O99.334 Smoking (tobacco) complicating childbirth; F17.210 Nicotine dependence, cigarettes, uncomplicated; D50.9 Iron deficiency anemia, unspecified; Z3A.34 34 weeks gestation of pregnancy; Z28.310 Unvaccinated for COVID-19; Z37.0 Single live birth
CPT/HCPCS: 80306; 81003; 85025; 86850; 86900; 86901; 86920; 99215

== ENCOUNTER → 2023-11-02 | Outpatient (CLI) | payer BC, OTHER ==
--- NOTE | 2023-11-24 08:05 | MR ---
Site ID synapse default Patient Kandice Zuñiga ID [id number] Age/Gender: 33Y, F Order # N/A Procedure MRI LSPINE WO CONTRAST Date 11/02/2023 12:07:41 PM EXAMINATION TYPE: MR lumbar spine wo con DATE OF EXAM: 11/16/2023 COMPARISON: None, please note PACS Production downtime occurred during the radiologist interpretation of these images with limited priors/reports. HISTORY: Low back pain TECHNIQUE: Multiplanar, multisequence images of the lumbar spine were acquired without IV contrast. L1-L2: Normal disc appearance without desiccation. No herniation, protrusion or disc bulging. No ca nal stenosis is present. Foramina are patent bilaterally. L2-L3: Normal disc appearance without desiccation. No herniation, protrusion or disc bulging. No ca nal stenosis is present. Foramina are patent bilaterally. L3-L4: Normal disc appearance without desiccation. No herniation, protrusion or disc bulging. No ca nal stenosis is present. Foramina are patent bilaterally. L4-L5: Normal disc appearance without desiccation. No herniation, protrusion or disc bulging. No ca nal stenosis is present. Foramina are patent bilaterally. L5-S1: Central disc protrusion with mild effacement of the anterior thecal sac (series 601, image 2). No clear abutment of the exiting nerve roots. Foramina are patent bilaterally. Lumbar segments are intact. No paraspinal masses are identified. Conus medullaris has a normal appe arance. IMPRESSION: L5-S1 disc herniation with mild central canal stenosis. No clear abutment of the surrounding nerve ro ots.
== END | disposition home or self-care (01) ==
LOC: RADMRIMAIN 12:50
PROVIDERS: ATTEND Orthopaedic Surgery
DX: M47.816 Spondylosis without myelopathy or radiculopathy, lumbar region (principal); M51.27 Other intervertebral disc displacement, lumbosacral region; M48.061 Spinal stenosis, lumbar region without neurogenic claudication
CPT/HCPCS: 72148

== ENCOUNTER → 2023-12-27 | Outpatient (CLI) | payer OTHER ==
--- NOTE | 2023-12-27 07:51 | US ---
EXAMINATION TYPE: US venous doppler duplex LE BI DATE OF EXAM: 12/27/2023 7:35 AM COMPARISON: NONE CLINICAL INDICATION: Female, 33 years old with history of R60.0 LOCALIZED EDEMA; Bilateral lower extr emity swelling x 1 week. Hx swelling post pregnancies - most recent 02/2023; JAN; Smoker SIDE PERFORMED: Bilateral TECHNIQUE: The lower extremity deep venous system is examined utilizing real time linear array sonog bahman with graded compression, color doppler sonography, and spectral doppler. VESSELS IMAGED: Common Femoral Vein Deep Femoral Vein Greater Saphenous Vein * Femoral Vein Popliteal Vein Small Saphenous Vein * Proximal Calf Veins (* superficial vessels) Right Leg: Negative for DVT Left Leg: Negative for DVT IMPRESSION: Grayscale, color doppler, spectral doppler imaging performed of the deep veins of the lo wer extremities. There is normal flow, compressibility, vascular waveforms. [facility], , 12/27/2023 7:49 AM
== END | disposition home or self-care (01) ==
LOC: RADUSWWP 07:15
PROVIDERS: ATTEND Internal Medicine
DX: R60.0 Localized edema
CPT/HCPCS: 93970

== ENCOUNTER → 2024-01-02 | Outpatient (CLI) | payer OTHER ==
[2024-01-02 11:34] VITALS: BP 133/95; PULSE 96; RESP 16; TEMP 97.1
--- NOTE | 2024-01-02 15:07 | P.PAINPG ---
PQRS Measure Charge Sheet Comment: HISTORY OF PRESENT ILLNESS: A 33 yr old female w daughter at side as a referral from [facility] presents today w severe and chronic LBP > 3 mo secondary to radiculopathy, spondylosis and facet arthropathy without myelopathy for evaluation. Pt states pain level is provoked at 9 /10 in intensity, constant, localized in the L lumbar, predominantly axial, tender in character w occasional shooting pain towards the L hip and LLE. Pain is provoked by lifting and rotation. Pain is alleviated by PT x 4 wks which ended in Oct 2023, physician guided home exercises 4 weekly since Oct 2023, ice, medications ([place], Ibu), Lidoderm topical, repositioning and rest . PMH: OA, Anxiety/ Bipolar/ Schizophrenia PSH: (2022), Eye Surgery (2014) SH: Daily tobacco use, Vape use, No ETOH abuse, No illicit drug use FH: Mo- CHF, COPD All: See list Meds: See list REVIEW OF ORGAN SYSTEMS: CONSTITUTIONAL: No fevers or chills. No recent weight loss. NEUROLOGICAL: + numbness and tingling along the distal extremities. No seizure disorders or headaches. MUSCULOSKELETAL: + pain PSYCHIATRIC: Denies current depression or suicidal thoughts. Physical Examinations : Constitutional : Cooperative , not in acute distress . Neurologic : Cranial nerve II to XII intact. No focal neurological deficits. Psychiatric : alert & oriented x 3. Matching mood & appropriate affect. Judgment & insight intact. Musculoskeletal : Cervical Spine Motor strength in the deltoid and biceps: Normal right side. Normal Left side Motor strength biceps and the wrist extensors: Normal right side . Normal left side Motor strength in the triceps muscle: Normal right side. Normal left side Deep tendon reflexes: Normal at the biceps. Normal at Brachioradialis. Normal at triceps Vertebral body tenderness to deep palpation over Cervical facet loading test: positive bilaterally Spurling test: positive bilaterally Neck distraction test: positive bilaterally Boy sign: positive bilaterally Lumbar spine Motor strength lower extremities ,thigh and legs 5/5 Right side , 5/5 Left side Deep tendon reflexes : Normal Knee Jerk. Normal Ankle Jerk Vertebral body tenderness over L5 Farnsworth Test positive BL L5-S1 Lumbar facet Loading Test: positive Right / positive Left Range of motion of the lumbar spine Flexion 30 degrees, extension 10 degrees Straight Leg Raise test: Left/ Right positive at degrees Doroteo test: positive right / positive left. Severe tenderness over the Sacroiliac joint on the Right / Left sides Gaenslen test: positive bilaterally Seated flexion test: positive bilaterally. Sacral spine : Severe tenderness over the Sacroiliac joint: right side / left side Range of motion: Flexion of the lumbar spine <60 degrees Range of motion: Extension of the lumbar spine <20 degrees Gaenslen's Test positive Doroteo test: positive right side / left side Thigh Thrust Test Sacral Thrust Test Imaging: MRI non contrast lumbar spine from 11/02/23 reviewed Assessment/ Plan : L5-S1 radiculopathy Recommendation of RJ L5-S1 #1. Risks, benefits of procedure discussed and patient verbalized understanding. Admits to anti- coagulant use or medical history of diabetes. Protocol for discontinuation/ continuation of medications justin procedure discussed. All questions answered. I have spent greater than 30 minutes on patient care today. Dr Jean Baptiste was available by phone for the evaluation of this patient. The time was used to review the medical records including relevant urine studies and Prescription history (MAPs), review of the available imaging, evaluation and examination of the patient, coordination of care with the medical staff and if applicable referring physicians, as well as creation of the medical record Home Medications: Ambulatory Orders Acetaminophen Tab [Tylenol] 650 mg PO Q4HR PRN tab 07/12/20 Ibuprofen [Motrin] 600 mg PO Q6H tab 07/12/20 Ibuprofen [Motrin] 600 mg PO Q8HR PRN #20 tab 09/24/21 Penicillin V Potassium [Pen Vee K] 500 mg PO QID #40 tablet 09/24/21 Cyclobenzaprine [Flexeril] 10 mg PO TID PRN #15 tab 08/18/22 Lidocaine 5% Patch [Lidoderm 5% Patch] 1 patch TOPICAL DAILY PRN #30 patch 08/18/22 Cephalexin [Keflex] 500 mg PO Q8HR 7 Days #21 cap 09/27/22 Amoxic-Pot Clav 875-125Mg [Augmentin 875-125] 1 tab PO Q12HR 10 Days #20 tab 01/16/23 Amoxicillin 500 mg PO TID #21 cap 03/09/23 Ferrous Sulfate [Iron (65 MG Elemental)] 325 mg PO BID-W/MEALS #60 tab 03/09/23 Ibuprofen [Motrin] 600 mg PO Q6H #40 tab 03/09/23 oxyCODONE HCL [OxyIR] 5 mg PO Q6HR PRN #18 tab 03/09/23 Controlled Substance Measures - Controlled Substance Measures Is patient prescribed a controlled substance at discharge?: No
== END | disposition home or self-care (01) ==
LOC: PNWHC3 10:50
PROVIDERS: ATTEND Specialist
DX: M47.26 Other spondylosis with radiculopathy, lumbar region (principal); F17.290 Nicotine dependence, other tobacco product, uncomplicated
CPT/HCPCS: 99211

== ENCOUNTER 2024-01-20 10:54 | Day surgery (SDC) | payer OTHER ==
[2024-01-19 09:54] VITALS: BMI 39.9
[~2024-01-20 10:54] MED LIST: LACTATED RINGERS 1,000 ML IV SCH
[2024-01-20 11:23] VITALS: RESP 16; TEMP 97.3
[2024-01-20] MEDS ORDERED: IOPAMIDOL M200 10 ML VIAL ONE (12:08)
[2024-01-20] MEDS ORDERED: methylPREDNISolone ACETATE 80 MG/ML 1 ML VIAL ONE (12:08)
--- NOTE | 2024-01-20 12:08 | P.PCN ---
Date of Procedure: 01/20/24 Procedure(s) Performed: PREOPERATIVE DIAGNOSIS: 1- Lumbar herniated disc Diseases 2-Lumbar radiculopathy. POSTOPERATIVE DIAGNOSIS: Same as preop diagnosis. PROCEDURE 1. Lumbar epidural steroid injection under fluoroscopic guidance at the L5-S1 level. (Fluoroscopy imaging was available in radiology department) 2. Lumbar epidurogram. ANESTHESIA: Lidocaine 1% 3 and then only. EBL: Minimal PROCEDURE INDICATION: The patient with low back pain and radiculitis symptoms unresponsive to conservative treatment. Fluoroscopy was used to optimize visualization of the needle placement and to maximize safety. PROCEDURE DESCRIPTION / TECHNIQUE: The patient was seen and identified in the preoperative area. Risks, benefits, complications including but not limited to infections ,bleeding ,allergic reaction to the medications ,nerve damage and not complete pain releife , and alternatives were discussed with the patient. The patient agreed to proceed with the procedure and signed the consent, and vital signs were stable. Patient was taken to the OR and time out was completed. The patient was placed in the prone position on procedure table and a pillow was placed under the abdomen to reduce lumbar lordosis. The lumbosacral area was prepped and draped in the usual sterile fashion.ere closely monitored during the procedure. Vital signs was monitered during the entire procedure. Using anterior-posterior fluoroscopy, the L5-S1 interlaminar space was identified and the skin over this site was marked and then infiltrated with 1% lidocaine subcutaneously. Subsequently, a 20-gauge Tuohy epidural needle was inserted and advanced toward the epidural space using the ``Loss of resistance technique and guided by AP and lateral fluoroscopy. The correct needle position in the epidural space was verified with the injection of 2 mL of the water soluble contrast dye Isovue 200 contrast and observing an excellent epidurogram with the epidural spread of the dye, after negative aspiration for blood and CSF and in the absence of paresthesias. Again after negative aspiration, a 6 ml mixture containing 80 mg of Depo-medrol ( Preservetive Free ), and 2 ml of preservative free Normal Saline, and 2 ml of preservative free lidocaine 1% solution was injected and a washout of epidurogram was seen. Needle was withdrawn intact, skin was cleansed, and bandages were applied. COMPLICATIONS: None DISPOSITION / PLANS: The patient was placed in a supine position and transferred to the recovery area in a stable condition for observation. There was no evidence of lower extremity motor or sensory deficit after the procedure. Patient was discharged from the recovery room after meeting discharge criteria. Home discharge instructions were given to the patient by the staff. The patient was reexamined prior to discharge. The patient will schedule a follow up in the clinic in 2-4 weeks.
--- NOTE | 2024-01-20 12:19 | FL ---
Fluoroscopy History: Lumbar Epid Inj lesi fl time 2 sec dap [id number] [facility], , 01/20/2024 12:16 PM
[2024-01-20 12:32] VITALS: BP 128/89; PULSE 88
== END 2024-01-20 12:40 | disposition home or self-care (01) ==
LOC: ORPAIN 10:54
PROVIDERS: ATTEND Specialist
DX: M51.16 Intervertebral disc disorders with radiculopathy, lumbar region (principal); Z79.1 Long term (current) use of non-steroidal anti-inflammatories (NSAID)
CPT/HCPCS: 81025; 62323; Q9966; J1010

== ENCOUNTER 2024-01-30 15:35 | Inpatient (IN) | payer MEDICAID, OTHER ==
--- NOTE | 2024-01-30 17:55 | ED ---
General Adult HPI - General Chief complaint: Psychiatric Symptoms Stated complaint: mental health Time Seen by Provider: 01/30/24 16:05 Source: patient, RN notes reviewed, old records reviewed Mode of arrival: ambulatory Limitations: no limitations - History of Present Illness Initial comments: This is a 33-year-old female who presents to the emergency department stating that she hears voices and has for years however lately they have becoming worse and she is hearing people who are bad people in her prior life and they are telling her things such that her kids are not really her kids and it is driving her crazy to the point where she is considering harming herself. Patient denies any drinking or drug use today. Patient states she was at another facility for the same thing 2 days ago and they discharged her and she states her desire to harm herself is just getting worse. Patient denies any physical complaints today. - Related Data Home Medications Medication Instructions Recorded Confirmed Cyclobenzaprine [Flexeril] 5 mg PO TID 01/19/24 01/30/24 HYDROcodone/APAP 10-325MG [[place] 1 tab PO BID 01/19/24 01/30/24 10-325] Pregabalin [Lyrica] 150 mg PO BID 01/19/24 01/30/24 Ferrous Sulfate [Feosol] 325 mg PO DAILY 01/30/24 01/30/24 Naproxen [Naprosyn] 500 mg PO BID-W/MEALS PRN 01/30/24 01/30/24 QUEtiapine FUMARATE [SEROquel XR] 150 mg PO BID 01/30/24 01/30/24 Allergies Allergy/AdvReac Type Severity Reaction Status Date / Time No Known Allergies Allergy Verified 01/30/24 17:39 Review of Systems ROS Statement: Those systems with pertinent positive or pertinent negative responses have been documented in the HPI. ROS Other: All systems not noted in ROS Statement are negative. Past Medical History Past Medical History: No Reported History Additional Past Medical History / Comment(s): CHRONIC BACK PAIN History of Any Multi-Drug Resistant Organisms: None Reported Past Surgical History: Section Additional Past Surgical History / Comment(s): eye sx 2014, Past Anesthesia/Blood Transfusion Reactions: No Reported Reaction Past Psychological History: Anxiety, Bipolar, Schizophrenia Smoking Status: Former smoker Past Alcohol Use History: None Reported Past Drug Use History: None Reported - Past Family History Mother Family Medical History: Congestive Heart Failure (CHF), COPD, Thyroid Disorder General Exam - General Exam Comments Initial Comments: GENERAL: Patient is well-developed and well-nourished. Patient is nontoxic and well- hydrated and is in no acute distress. ENT: Neck is soft and supple. No significant lymphadenopathy is noted. Oropharynx is clear. Moist mucous membranes. Neck has full range of motion without eliciting any pain. EYES: The sclera were anicteric and conjunctiva were pink and moist. Extraocular movements were intact and pupils were equal round and reactive to light. Eyelids were unremarkable. PULMONARY: Unlabored respirations. Good breath sounds bilaterally. No audible rales rhonchi or wheezing was noted. CARDIOVASCULAR: There is a regular rate and rhythm without any murmurs gallops or rubs. ABDOMEN: Soft and nontender with normal bowel sounds. SKIN: Skin is clear with no lesions or rashes and otherwise unremarkable. NEUROLOGIC: Patient is alert and oriented x3. Cranial nerves II through XII are grossly intact. Motor and sensory are also intact. Normal speech, volume and content. Symmetrical smile. MUSCULOSKELETAL: Normal extremities with adequate strength and full range of motion. No lower extremity swelling or edema. No calf tenderness. LYMPHATICS: No significant lymphadenopathy is noted PSYCHIATRIC: Patient states she is suicidal Limitations: no limitations Course Vital Signs 01/30/24 16:02 Temperature 98.2 F Pulse Rate 98 Respiratory 18 Rate Blood Pressure 129/85 O2 Sat by Pulse 99 Oximetry Medical Decision Making - Medical Decision Making Was pt. sent in by a medical professional or institution (, [facility], CONTROL CENTER OPERATOR, urgent care, hospital, or group home...) When possible be specific @ -[No] Did you speak to anyone other than the patient for history (EMS, parent, family, police, friend...)? What history was obtained from this source @ -[No] Did you review nursing and triage notes (agree or disagree)? Why? @ -[I reviewed and agree with nursing and triage notes] Were old charts reviewed (outside hosp., previous admission, EMS record, old EKG, old radiological studies, urgent care reports/EKG's, group home records)? Report findings @ -[No old charts were reviewed] Differential Diagnosis? @ -Differential Mental Health Depression, anxiety, bipolar, psychosis, schizophrenia, borderline personality, situational depression, adjustment disorder, behavioral disorder, brain tumor, malingering, substance abuse, encephalopathy, medication reaction, dementia, hypothyroidism, degenerative neurologic disorder, lupus.... This is not meant to be all-inclusive list EKG interpreted by me (3pts min.). @ -[As above] X-rays interpreted by me (1pt min.). @ -[None done] CT interpreted by me (1pt min.). @ -[None done] U/S interpreted by me (1pt. min.). @ -[None done] What testing was considered but not performed or refused? (CT, X-rays, U/S, labs)? Why? @ -[None] What meds were considered but not given or refused? Why? @ -[None] Did you discuss the management of the patient with other professionals (professionals i.e. , PA, CONTROL CENTER OPERATOR, lab, RT, psych nurse, vp digital marketing social media and crm, wheel tuner, teacher, officer lieutenant, hospice case manager)? Give summary @ -EPS evaluated the patient and determined the patient need to be admitted patient will be admitted to the psychiatric floor under a voluntary basis Was smoking cessation discussed for >3mins.? @ -[No] Was critical care preformed (if so, how long)? @ -[No] Were there social determinants of health that impacted care today? How? (Homelessness, low income, unemployed, alcoholism, drug addiction, transportation, low edu. Level, literacy, decrease access to med. care, custodial, rehab)? @ -[No] Was there de-escalation of care discussed even if they declined (Discuss DNR or withdrawal of care, Hospice)? DNR status @ -[No] What co-morbidities impacted this encounter? (DM, HTN, Smoking, COPD, CAD, Cancer, CVA, ARF, Chemo, Hep., AIDS, mental health diagnosis, sleep apnea, morbid obesity)? @ -[None] Was patient admitted / discharged? Hospital course, mention meds given and route, prescriptions, significant lab abnormalities, going to OR and other pertinent info. @ -I spoke with the EPS Undiagnosed new problem with uncertain prognosis? @ -[No] Drug Therapy requiring intensive monitoring for toxicity (Heparin, Nitro, Insulin, Cardizem)? @ -[No] Were any procedures done? @ -[No] Diagnosis/symptom? @ -Suicidal ideations Acute, or Chronic, or Acute on Chronic? @ -Acute Uncomplicated (without systemic symptoms) or Complicated (systemic symptoms)? @ -[default] Side effects of treatment? @ -[No] Exacerbation, Progression, or Severe Exacerbation? @ -[No] Poses a threat to life or bodily function? How? (Chest pain, [place], [place], pneumonia, PE, COPD, DKA, ARF, appy, cholecystitis, CVA, Diverticulitis, Homicidal, Lim icidal, threat to staff... and all critical care pts) @ -Yes this could lead to suicide attempt and - Lab Data Lab Results 01/30/24 Range/Units 17:15 Urine Opiates Screen Not Detected (NotDetected) Ur Oxycodone Screen Not Detected (NotDetected) Urine Methadone Screen Not Detected (NotDetected) Ur Barbiturates Screen Not Detected (NotDetected) U Tricyclic Antidepress Not Detected (NotDetected) Ur Phencyclidine Scrn Not Detected (NotDetected) Ur Amphetamines Screen Not Detected (NotDetected) U Methamphetamines Scrn Not Detected (NotDetected) U Benzodiazepines Scrn Not Detected (NotDetected) Urine Cocaine Screen Detected H (NotDetected) U Marijuana (THC) Screen Not Detected (NotDetected) Disposition Clinical Impression: Depression, Suicidal ideation Disposition: ADMITTED IP TO THIS [facility] Referrals: Nonstaff,Physician [Primary Care Provider] - 1-2 days Time of Disposition: 19:05
[2024-01-30 18:10] LABS: Amphetamine Screen,Urine Not Detected (NotDetected); Barbiturate Screen,Urine Not Detected (NotDetected); Benzodiazepines Screen,Urine Not Detected (NotDetected); Cocaine Screen,Urine Detected (NotDetected); Methadone Screen, Urine Not Detected (NotDetected); Opiate Screen,Urine Not Detected (NotDetected); Oxycodone Screen, Urine Not Detected (NotDetected); Phencyclidine Screen,Urine Not Detected (NotDetected); Tricyclic Antidepressant,Urine Not Detected (NotDetected); Urn Cannabinoid Scrn Not Detected (NotDetected)
[2024-01-30] MEDS ORDERED: MAGNESIUM HYDROXIDE 2,400 MG/30 ML CUP PO PRN (20:19)
[2024-01-30] MEDS ORDERED: LORazepam 2 MG/ML INJ IM PRN (20:19)
[2024-01-30] MEDS ORDERED: LORazepam 1 MG TAB PO PRN (20:19)
[2024-01-30] MEDS ORDERED: MAG HYDROX/AL HYDROX/SIMETH 355 ML BOTTLE PO PRN (20:19)
[2024-01-30] MEDS ORDERED: QUEtiapine 50 MG TAB PO PRN (20:19)
--- NOTE | 2024-01-30 22:06 | P.MDCNMH ---
History of Present Illness Reason for consult: Medical management History of present illness; 33-year-old female with no known medical history and psychiatric history of anxiety, bipolar, and schizophrenia presented to the emergency department with complaints of hearing voices. Patient reports this has been going on for years but has recently gotten worse so decided to come to the emergency department. Patient is sitting up in bed resting with no complaints of pain. Patient reports absence of fever, chills, weight loss, chest pain, palpitations, diaphoresis, dyspnea, cough, nausea, vomiting, constipation, diarrhea, abdominal pain, weakness, myalgia, dizziness, headache, and dysuria. Internal medicine was consulted for medical management. Social history: Cocaine use, REVIEW OF SYSTEMS: All systems reviewed, pertinent positives and negatives noted in HPI. All other symptoms are negative. PHYSICAL EXAMINATION: Vitals reviewed GENERAL: No acute distress. Well developed, well nourished. HEENT: Pupils are round and equally reacting to light. EOMI. No scleral icterus. Normocephalic, atraumatic. CARDIOVASCULAR: S1 and S2 present. No murmurs, rubs, or gallops. PULMONARY: Chest is clear to auscultation, no wheezing, rhonchi, or crackles. ABDOMEN: Soft, nontender, nondistended, normoactive bowel sounds. No palpable organomegaly. MUSCULOSKELETAL: No apparent joint swelling and deformities. EXTREMITIES: No apparent cyanosis, clubbing, or pedal edema. NEUROLOGICAL: The patient is alert and oriented x3, Gross neurological examination did not reveal any focal deficits. 5/5 strength bilateral UE and LE. Cranial nerves II through XII within normal limits. SKIN: No apparent rashes. Assessment and plan 33-year-old female with no known medical history and psychiatric history of anxiety, bipolar, and schizophrenia presented to the emergency department with complaints of hearing voices. Internal medicine on consult for medical management. Chronic Medical Conditions: No chronic conditions # Schizophrenia, bipolar, anxiety -Psychiatric medications being managed by primary team F: None E: None N: Regular diet Code status: Full code Patient is stable from medical stand point Follow up CBC and CMP in AM Past Medical History Past Medical History: No Reported History Additional Past Medical History / Comment(s): CHRONIC BACK PAIN History of Any Multi-Drug Resistant Organisms: None Reported Past Surgical History: Section Additional Past Surgical History / Comment(s): eye sx 2015, Past Anesthesia/Blood Transfusion Reactions: No Reported Reaction Smoking Status: Vaper - Past Family History Mother Family Medical History: Congestive Heart Failure (CHF), COPD, Thyroid Disorder Medications and Allergies Home Medications Medication Instructions Recorded Confirmed Type Cyclobenzaprine [Flexeril] 5 mg PO TID 01/19/24 01/30/24 History HYDROcodone/APAP 10-325MG [[place] 1 tab PO BID 01/19/24 01/30/24 History 10-325] Pregabalin [Lyrica] 150 mg PO BID 01/19/24 01/30/24 History Ferrous Sulfate [Feosol] 325 mg PO DAILY 01/30/24 01/30/24 History Naproxen [Naprosyn] 500 mg PO BID-W/MEALS PRN 01/30/24 01/30/24 History QUEtiapine FUMARATE [SEROquel XR] 150 mg PO BID 01/30/24 01/30/24 History Allergies Allergy/AdvReac Type Severity Reaction Status Date / Time No Known Allergies Allergy Verified 01/30/24 20:42 Physical Exam Vitals: Vital Signs Temp Pulse Resp BP Pulse Ox 01/30/24 16:02 98.2 F 98 18 129/85 99 Intake and Output 01/30/24 01/30/24 01/30/24 06:59 14:59 22:59 Other: Weight 100.698 kg Results Labs: Abnormal Lab Results - Last 24 Hours (Table) 01/30/24 Range/Units 17:15 Urine Cocaine Screen Detected H (NotDetected)
[2024-01-30] MEDS: CYCLOBENZAPRINE 5 MG TAB PO SCH (22:13)
[2024-01-30] MEDS: PREGABALIN 75 MG CAP PO SCH (22:13)
[2024-01-30] MEDS: QUEtiapine 50 MG TAB PO SCH (22:13)
[2024-01-30 22:26] LABS: Amorphous Sediment,Urine Rare /hpf; Appearance,Urine Turbid (Clear); Bilirubin,Urine Negative (Negative); Blood,Urine Negative (Negative); Budding Yeast,Urine Many /hpf; Calcium Oxalate Crystals,Urine Moderate /hpf; Color,Urine Light Yellow; Glucose,Urine (UA) Negative (Negative); Ketones,Urine Negative (Negative); Leukocyte Esterase,Urine Negative (Negative); Mucus,Urine Rare /hpf; Nitrite,Urine Negative (Negative); PH, Urine 7.5 (5.0-8.0); Protein,Urine Negative (Negative); RBC,Urine <1 /hpf (0-5); Specific Gravity,Urine 1.017 (1.001-1.035); Squamous Epithelial Cell,Urine 6 /hpf (0-4); Urobilinogen,Urine <2.0 mg/dL (<2.0); WBC,Urine 6 /hpf (0-5)
--- NOTE | 2024-01-30 23:14 | P.MDCNMH ---
History of Present Illness H&P Date: 01/30/24 Chief Complaint: medical eval 33-year-old female with chronic low back pain, schizophrenia Patient coming for evaluation due to hearing voices and seeing things. She reports that hearing voices been going on for a while she hears voices of people she knows that they are threatening her she got sick of that and decided to come in for evaluation due to the type of the voices she is hearing she was started having negative thoughts about ending her life with drug overdose. Otherwise patient denies any medical concerns at this time she denies any fever, chills, cough, sore throat, chest pain , trouble breathing , nausea , vomiting, abd pain , changes in urinary or bowel habits. she denies tobacco smoking, she claims that she quit meth 3 months ago , and alcohol 1 year. She admits to vaping but denies any illicit drugs or heavy alcohol. However patient urine drug screen was positive for cocaine review of systems Pertinent positives as noted in HPI. All other systems were reviewed and are negative on exam Constitutional: No acute distress, conversant, pleasant Eyes: Anicteric sclerae, moist conjunctiva, Pupils equal round reactive to light Neck: Supple, no masses, or JVD No carotid bruits No thyromegaly Lungs: Clear to auscultation Clear to percussion Normal respiratory effort, no accessory muscle use Cardiovascular: Heart regular in rate and rhythm, No murmurs, gallops, or rubs No peripheral edema Abdominal: Soft Nontender, no guarding, rebound or rigidity Abdomen moving with respiration Normoactive bowel sounds Extremities: No digital cyanosis No clubbing Pedal pulses intact and symmetrical Radial pulses intact and symmetrical No calf tenderness Psychiatric: Alert and oriented to person, place and time Neuro Muscles Strength 5/5 in all 4 extremities Sensation to light touch grossly present throughout Cranial nerves II-XII grossly intact Past Medical History Past Medical History: No Reported History Additional Past Medical History / Comment(s): CHRONIC BACK PAIN History of Any Multi-Drug Resistant Organisms: None Reported Past Surgical History: Section Additional Past Surgical History / Comment(s): eye sx 2015, Past Anesthesia/Blood Transfusion Reactions: No Reported Reaction Past Psychological History: Anxiety, Bipolar, Depression Smoking Status: Vaper Past Alcohol Use History: None Reported Additional Past Alcohol Use History / Comment(s): QUIT SMOKING 03/21/23 Past Drug Use History: Cocaine Additional Drug Use History / Comment(s): UDS+cocaine 01/30/2024 - Past Family History Mother Family Medical History: Congestive Heart Failure (CHF), COPD, Thyroid Disorder Medications and Allergies Home Medications Medication Instructions Recorded Confirmed Type Cyclobenzaprine [Flexeril] 5 mg PO TID 01/19/24 01/30/24 History HYDROcodone/APAP 10-325MG [[place] 1 tab PO BID 01/19/24 01/30/24 History 10-325] Pregabalin [Lyrica] 150 mg PO BID 01/19/24 01/30/24 History Ferrous Sulfate [Feosol] 325 mg PO DAILY 01/30/24 01/30/24 History Naproxen [Naprosyn] 500 mg PO BID-W/MEALS PRN 01/30/24 01/30/24 History QUEtiapine FUMARATE [SEROquel XR] 150 mg PO BID 01/30/24 01/30/24 History Allergies Allergy/AdvReac Type Severity Reaction Status Date / Time No Known Allergies Allergy Verified 01/30/24 20:42 Physical Exam Vitals: Vital Signs Temp Pulse Pulse Resp BP BP Pulse Ox 01/30/24 20:15 98.3 F 83 15 140/102 98 01/30/24 16:02 98.2 F 98 18 129/85 99 Intake and Output 01/30/24 01/30/24 01/31/24 14:59 22:59 06:59 Other: Weight 98.004 kg Cranial Nerve Examination - Cranial Nerves Cranial Nerve II- Optic: Intact Cranial Nerve III- Oculomotor: Intact Cranial Nerve IV- Trochlear: Intact Cranial Nerve V- Trigeminal: Intact Cranial Nerve - Abducens: Intact Cranial Nerve VII- Facial: Intact Cranial Nerve VIII- Auditory: Intact Cranial Nerve IX- Glossopharyngeal: Intact Cranial Nerve X- Vagus: Intact Cranial Nerve XI- Accessory: Intact Cranial Nerve XII- Hypoglossal: Intact Results Labs: Abnormal Lab Results - Last 24 Hours (Table) 01/30/24 01/30/24 Range/Units 17:15 17:15 Urine Appearance Turbid H (Clear) Urine WBC 6 H (0-5) /hpf Ur Squamous Epith Cells 6 H (0-4) /hpf Calcium Oxalate Crystal Moderate H (None) /hpf Amorphous Sediment Rare H (None) /hpf Urine Mucus Rare H (None) /hpf Urine Yeast (Budding) Many H (None) /hpf Urine Cocaine Screen Detected H (NotDetected) Assessment and Plan Assessment: Acute psychosis management per psych Blood work pending Polysubstance abuse Patient denies any illicit drugs however urine drug screen was positive for cocaine Patient counseled to avoid drug abuse Obesity Consider lifestyle modification and weight loss Patient stable overall from medical standpoint Thank you for this consultation
[2024-01-31] MEDS: NICOTINE 21MG/24HR PATCH TRANSDERM SCH (08:24)
[2024-01-31] MEDS: FERROUS SULFATE 325 MG TAB PO SCH (08:24)
[2024-01-31 09:23] LABS: Anisocytosis Slight; Basophils # (A) 0.1 k/uL (0-0.2); Basophils % (A) 1 %; Eosinophils # (A) 0.2 k/uL (0-0.7); Eosinophils % (A) 2 %; HCT 43.3 % (34.0-46.0); HGB 13.7 gm/dL (11.4-16.0); Lymphocytes # (A) 3.1 k/uL (1.0-4.8); Lymphocytes % (A) 36 %; MCH 27.4 pg (25.0-35.0); MCHC 31.6 g/dL (31.0-37.0); MCV 86.6 fL (80.0-100.0); Mean Platelet Volume 7.3; Monocytes # (A) 0.3 k/uL (0-1.0); Monocytes % (A) 3 %; Neutrophils # (A) 4.8 k/uL (1.3-7.7); Neutrophils % (A) 56 %; Platelet Count 475 k/uL (150-450); RDW 16.3 % (11.5-15.5); WBC 8.7 k/uL (3.8-10.6)
[2024-01-31 09:43] LABS: ALT 19 U/L (4-34); AST 21 U/L (14-36); African American GFR (CKD) >90 (>60 ml/min/1.73 sqM); Albumin 3.9 g/dL (3.5-5.0); Alkaline Phosphatase 56 U/L (38-126); Anion Gap 5 mmol/L; Bilirubin, Delta 0.1 mg/dL (0.0-0.2); Bilirubin,Unconjugated 0.1 mg/dL (0.0-1.1); Blood Urea Nitrogen 9 mg/dL (7-17); Carbon Dioxide 27 mmol/L (22-30); Chloride 105 mmol/L (98-107); Glucose 115 mg/dL (74-99); Non-African American GFR(CKD) >90 (>60 ml/min/1.73 sqM); Potassium 4.6 mmol/L (3.5-5.1); Sodium 137 mmol/L (137-145); Total Bilirubin 0.2 mg/dL (0.2-1.3); Total Protein 6.4 g/dL (6.3-8.2)
[2024-01-31 10:35] VITALS: RESP 16; TEMP 97.8
[2024-01-31 15:21] LABS: Chol/HDL Ratio 4.57 Ratio; LDL Cholesterol,Calculated 108.7 mg/dL (0.0-131.0)
--- NOTE | 2024-01-31 16:16 | P.HP ---
Psychiatric H&P - . H&P Date: 01/31/24 History & Physical: Allergies Allergy/AdvReac Type Severity Reaction Status Date / Time No Known Allergies Allergy Verified 01/30/24 20:42 Vital Signs Temp 97.8 F 01/31/24 08:00 Pulse 96 01/31/24 08:00 Resp 16 01/31/24 08:00 BP 125/85 01/31/24 08:00 Pulse Ox 96 01/31/24 08:00 FiO2 Intake & Output 01/30/24 01/31/24 01/31/24 18:59 06:59 18:59 Weight 100.698 kg 98.004 kg Laboratory Last Values WBC 8.7 k/uL (3.8-10.6) 01/31/24 08:35 RBC 5.00 m/uL (3.80-5.40) 01/31/24 08:35 Hgb 13.7 gm/dL (11.4-16.0) 01/31/24 08:35 Hct 43.3 % (34.0-46.0) 01/31/24 08:35 MCV 86.6 fL (80.0-100.0) 01/31/24 08:35 MCH 27.4 pg (25.0-35.0) 01/31/24 08:35 MCHC 31.6 g/dL (31.0-37.0) 01/31/24 08:35 RDW 16.3 % (11.5-15.5) H 01/31/24 08:35 Plt Count 475 k/uL (150-450) H 01/31/24 08:35 MPV 7.3 01/31/24 08:35 Neutrophils % 56 % 01/31/24 08:35 Lymphocytes % 36 % 01/31/24 08:35 Monocytes % 3 % 01/31/24 08:35 Eosinophils % 2 % 01/31/24 08:35 Basophils % 1 % 01/31/24 08:35 Neutrophils # 4.8 k/uL (1.3-7.7) 01/31/24 08:35 Lymphocytes # 3.1 k/uL (1.0-4.8) 01/31/24 08:35 Monocytes # 0.3 k/uL (0-1.0) 01/31/24 08:35 Eosinophils # 0.2 k/uL (0-0.7) 01/31/24 08:35 Basophils # 0.1 k/uL (0-0.2) 01/31/24 08:35 Anisocytosis Slight 01/31/24 08:35 Sodium 137 mmol/L (137-145) 01/31/24 08:35 Potassium 4.6 mmol/L (3.5-5.1) 01/31/24 08:35 Chloride 105 mmol/L (98-107) 01/31/24 08:35 Carbon Dioxide 27 mmol/L (22-30) 01/31/24 08:35 Anion Gap 5 mmol/L 01/31/24 08:35 BUN 9 mg/dL (7-17) 01/31/24 08:35 Creatinine 0.67 mg/dL (0.52-1.04) 01/31/24 08:35 Est GFR (CKD-EPI)AfAm >90 (>60 ml/min/1.73 sqM) 01/31/24 08:35 Est GFR (CKD-EPI)NonAf >90 (>60 ml/min/1.73 sqM) 01/31/24 08:35 Glucose 115 mg/dL (74-99) H 01/31/24 08:[address] Glu mg/dL 108 mg/dL 01/31/24 08:35 Hemoglobin A1c 5.4 % (<=6.0) 01/31/24 08:35 Calcium 9.0 mg/dL (8.4-10.2) 01/31/24 08:35 Total Bilirubin 0.2 mg/dL (0.2-1.3) 01/31/24 08:35 Conjugated Bilirubin 0.0 mg/dL (0.0-0.3) 01/31/24 08:35 Unconjugated Bilirubin 0.1 mg/dL (0.0-1.1) 01/31/24 08:35 Delta Bilirubin 0.1 mg/dL (0.0-0.2) 01/31/24 08:35 AST 21 U/L (14-36) 01/31/24 08:35 ALT 19 U/L (4-34) 01/31/24 08:35 Alkaline Phosphatase 56 U/L (38-126) 01/31/24 08:35 Total Protein 6.4 g/dL (6.3-8.2) 01/31/24 08:35 Albumin 3.9 g/dL (3.5-5.0) 01/31/24 08:35 Triglycerides 226.00 mg/dL (0.00-149.00) H 01/31/24 08:35 Cholesterol 197.00 mg/dL (0.00-200.00) 01/31/24 08:35 LDL Cholesterol, Calc 108.7 mg/dL (0.0-131.0) 01/31/24 08:35 VLDL Cholesterol, Calc 45.20 mg/dL (5.00-40.00) H 01/31/24 08:35 HDL Cholesterol 43.10 mg/dL (40.00-60.00) 01/31/24 08:35 Cholesterol/HDL Ratio 4.57 Ratio 01/31/24 08:35 TSH 0.702 mIU/L (0.465-4.680) 01/31/24 08:35 Urine Color Light Yellow 01/30/24 17:15 Urine Appearance Turbid (Clear) H 01/30/24 17:15 Urine pH 7.5 (5.0-8.0) 01/30/24 17:15 Ur Specific [place] 1.017 (1.001-1.035) 01/30/24 17:15 Urine Protein Negative (Negative) 01/30/24 17:15 Urine Glucose (UA) Negative (Negative) 01/30/24 17:15 Urine Ketones Negative (Negative) 01/30/24 17:15 Urine Blood Negative (Negative) 01/30/24 17:15 Urine Nitrite Negative (Negative) 01/30/24 17:15 Urine Bilirubin Negative (Negative) 01/30/24 17:15 Urine Urobilinogen <2.0 mg/dL (<2.0) 01/30/24 17:15 Ur Leukocyte Esterase Negative (Negative) 01/30/24 17:15 Urine RBC <1 /hpf (0-5) 01/30/24 17:15 Urine WBC 6 /hpf (0-5) H 01/30/24 17:15 Ur Squamous Epith Cells 6 /hpf (0-4) H 01/30/24 17:15 Calcium Oxalate Crystal Moderate /hpf (None) H 01/30/24 17:15 Amorphous Sediment Rare /hpf (None) H 01/30/24 17:15 Urine Mucus Rare /hpf (None) H 01/30/24 17:15 Urine Yeast (Budding) Many /hpf (None) H 01/30/24 17:15 Urine HCG, Qual Not Detected (Not Detectd) 01/30/24 17:15 Urine Opiates Screen Not Detected (NotDetected) 01/30/24 17:15 Ur Oxycodone Screen Not Detected (NotDetected) 01/30/24 17:15 Urine Methadone Screen Not Detected (NotDetected) 01/30/24 17:15 Ur Barbiturates Screen Not Detected (NotDetected) 01/30/24 17:15 U Tricyclic Antidepress Not Detected (NotDetected) 01/30/24 17:15 Ur Phencyclidine Scrn Not Detected (NotDetected) 01/30/24 17:15 Ur Amphetamines Screen Not Detected (NotDetected) 01/30/24 17:15 U Methamphetamines Scrn Not Detected (NotDetected) 01/30/24 17:15 U Benzodiazepines Scrn Not Detected (NotDetected) 01/30/24 17:15 Urine Cocaine Screen Detected (NotDetected) H 01/30/24 17:15 U Marijuana (THC) Screen Not Detected (NotDetected) 01/30/24 17:15 Influenza Type A (PCR) Not Detected (Not Detectd) 01/30/24 19:20 Influenza Type B (PCR) Not Detected (Not Detectd) 01/30/24 19:20 RSV (PCR) Not Detected (Not Detectd) 01/30/24 19:20 SARS-CoV-2 (PCR) Not Detected (Not Detectd) 01/30/24 19:20 01/31/24 16:00 IDENTIFYING DATA: Patient is a 33-year-old female, currently working at [employer] and living at home with and 2 kids CHIEF COMPLAINT: AH, SI HPI: Patient presented to the hospital with mental health concerns. Per ED note, "This is a 33-year-old female who presents to the emergency department stating that she hears voices and has for years however lately they have becoming worse and she is hearing people who are bad people in her prior life and they are telling her things such that her kids are not really her kids and it is driving her crazy to the point where she is considering harming herself. Patient denies any drinking or drug use today. Patient states she was at another facility for the same thing 2 days ago and they discharged her and she states her desire to harm herself is just getting worse. Patient denies any physical complaints today." EPS eval revealed "patient presented to the ED with SI with a plan to OD on her medications. Patient verbalizes chronic auditory hallucinations but states they have recently worsened. States her voices are usually "creepy voices that tell me I'm not good enough" but states currently she is hearing familiar voices. Patient verbalizes paranoid ideations. She verbalizes using cocaine one week ago and uses occasionally. UDS+cocaine." Patient seen and evaluated on the unit and was agreeable to speak to writer technical publications in the office. She states starting a new job a few weeks ago and has been having difficulty managing the stress of working and taking care of her 2 children that lives with her. She states her does not help her with the children and that everything falls on her. She states the stress levels have impacted her sleep which further worsened her mood. She states her outpatient provider recently started her on Seroquel and that she noticed a worsening in her voices shortly after starting this medication. She reports also using cocaine a few days ago however she does not feel like this could also be contributing to worsening in her voices. Patient is adamant about not being restarted on Seroquel and states since being off of this medication, her voices have quieted. She denies any current auditory hallucinations and states last hearing any voices yesterday. She reports mood swings, irritability, restlessness, hopelessness and helplessness but denies any appetite changes or energy changes. Patient denies any suicidal or homicidal ideations intent or plan. At this time patient denies any visual hallucinations. Patient denies any flight of ideas racing thoughts and increased in goal directed behavior. Patient admits to using crack cocaine and nicotine. PAST PSYCHIATRIC HISTORY: Patient has a history of bipolar disorder. Her most recent medications however she has been nonadherent with include Seroquel XR 150 mg twice daily. She states previously trying Latuda, fluvoxamine, Zoloft. Patient reports 1 remote inpatient hospitalization at age 17 in which she attempted suicide via OD. Patient also reports a history of self-harm however has not engaged in these behaviors in 7/8 years. Patient follows with [facility]. PMH: as per ER note ALLERGIES: as per EMR SUBSTANCE USE HISTORY: Patient reports occasional crack cocaine use, last used a few days ago. She reports vaping nicotine daily. She denies any alcohol or cannabis use FAMILY PSYCHIATRIC/SUBSTANCE USE HISTORY: Denies SOCIAL HISTORY: Patient has 7 children however only has custody of 2 of them. She is . She recently started working at [employer]. Highest level of education is eighth grade. She denies any current legal issues. MENTAL STATUS EXAM: General Appearance: Patient appears to be stated age is alert, directable, and attempts to cooperate. Patient appears to have fair hygiene and grooming. Behavior: Patient is seated without any agitated behavior. Speech: Patient's speech is fluent and talkative. Mood/Affect: Patient reports their mood is "okay", affect is congruent and reactive. Suicidality/Homicidality: Patient denies having any homicidal ideation intent or plan. Denies any suicidal ideations intent or plan Perceptions: Patient denies any visual hallucinations and denies any auditory hallucinations Though content/process: There is no evidence of any delusional thought content and thought process is linear and goal-directed. Memory and concentration: AOX3, grossly intact for the purposes of this session. Can spell "WORLD" backwards Judgment and insight: poor STRENGTHS/WEAKNESSES: strength is that patient is resilient and follows with [facility] regularly. Weakness is that patient has poor judgment, is impulsive, and uses crack cocaine INTELLECT: Average IMPRESSIONS: Bipolar 1 disorder with psychotic features Stimulant use disorder (crack cocaine) Nicotine dependence PLAN: -Patient is admitted under voluntary status to [facility] for stabilization of psychiatric symptoms and safety. Patient has signed adult voluntary form and medication consent and is placed in patient's chart. -Medications : Start Abilify 5 mg at bedtime for psychosis/mood stabilization -Ativan and Haldol PRN for agitation/aggression -Patient was counselled on substance abuse and desired to cut back on use-Will offer patient subtance use rehab however patient appears precontemplative at the moment -Patient was informed of the risks, benefits and side effects of the medication and patient verbally consented to taking the medications. Patient signed med consent form and was placed in chart. -Internal Medicine consult to perform medical evaluation and physical. -NRT -nicotine patch -SW on board for discharge planning. Encourage patient to participate in groups to work on coping skills. Anticipate discharge back home with later this week pending stabilization and psychosis
[2024-01-31] MEDS: ARIPiprazole 5 MG TAB PO SCH (20:12)
[2024-01-31] MEDS: IBUPROFEN 600 MG TAB PO PRN (20:13)
[2024-01-31] MEDS: ACETAMINOPHEN TAB 325 MG TAB PO PRN (20:13)
[2024-02-01] MEDS: NAPROXEN 250 MG TAB PO PRN (08:50)
[2024-02-01] MEDS: ARIPiprazole 5 MG TAB PO SCH (10:42)
--- NOTE | 2024-02-01 12:03 | P.PN ---
Progress Note - Text Progress Note Date: 02/01/24 Interval History: Patient was seen in the [facility] and was directable and agreeable to speak with casualty underwriter in the office. She mentions feeling well today. She reports good sleep and appetite and was future oriented. She reports feeling more calm and denied any mood swings as evidenced by her ability to keep calm when an intrusive peer got close to her. She states she has been speaking to her and that things are well between them to and states that her aunt has been helping out watching her children. She states her will be visiting her today. At this time patient denies any suicidal or homicidal ideations, intent or plan. Patient denies any auditory, visual hallucinations and denies any paranoia or delusions. Patient denies any side effects from the medications and has been compliant with meds. Mental Status Exam: General Appearance: Patient appears to be stated age is alert, directable, and cooperative. Patient has long red dyed hair Behavior: Patient is calmly seated without any agitated behavior. Speech: Patient's speech is fluent and nonpressured. Mood/Affect: Mood is "great", affect is congruent and full range, reactive. Suicidality/Homicidality: Patient denies having any suicidal or homicidal ideation intent or plan. Perceptions: Patient denies any visual hallucinations and denies any auditory hallucinations Though content/process: There is no evidence of any delusional thought content and thought process is linear and goal-directed. Memory and concentration: AOX3, grossly intact for the purposes of this session Judgment and insight: Improving mildly Assessment Bipolar 1 disorder with psychotic features Stimulant use disorder (crack cocaine) Nicotine dependence Plan: -Patient continues to meet criteria for inpatient psychiatric admission for symptom stabilization and safety. Patient has signed adult voluntary form and medication consent and was placed in patient's chart. -Medications: Increase Abilify to 5 mg twice daily for psychosis/mood stabilization -When necessary Ativan and Haldol for agitation/aggression. -Labs: Reviewed -NRT -nicotine patch -SW on board for discharge planning. Encouraged the patient to participate in milieu. Anticipate discharge back home tomorrow with , confirmed no firearms in the home
[2024-02-02 08:39] VITALS: BP 145/89; PULSE 128
--- NOTE | 2024-02-02 14:22 | P.DS ---
Providers Date of admission: 01/30/24 20:13 Expected date of discharge: 02/02/24 Attending physician: Nory Vila MD Consults: 01/30/24 20:19 Consult Physician Routine Consulting Provider: Zi Pacheco Consult Reason/Comments: History and Physical, New Admission Do you want consulting provider notified?: Yes Primary care physician: Gerber Coelho MD - Discharge Diagnosis(es) (1) Bipolar disorder with psychotic features Status: Acute Priority: High (2) Cocaine use disorder Status: Acute Priority: High (3) Nicotine dependence Status: Chronic Priority: Low Hospital Course: Admission HPI: Admission note was completed by newswriter" Patient presented to the hospital with mental health concerns. Per ED note, "This is a 33-year-old female who presents to the emergency department stating that she hears voices and has for years however lately they have becoming worse and she is hearing people who are bad people in her prior life and they are telling her things such that her kids are not really her kids and it is driving her crazy to the point where she is considering harming herself. Patient denies any drinking or drug use today. Patient states she was at another facility for the same thing 2 days ago and they discharged her and she states her desire to harm herself is just getting worse. Patient denies any physical complaints today." EPS eval revealed "patient presented to the ED with SI with a plan to OD on her medications. Patient verbalizes chronic auditory hallucinations but states they have recently worsened. States her voices are usually "creepy voices that tell me I'm not good enough" but states currently she is hearing familiar voices. Patient verbalizes paranoid ideations. She verbalizes using cocaine one week ago and uses occasionally. UDS+cocaine." Patient seen and evaluated on the unit and was agreeable to speak to newswriter in the office. She states starting a new job a few weeks ago and has been having difficulty managing the stress of working and taking care of her 2 children that lives with her. She states her does not help her with the children and that everything falls on her. She states the stress levels have impacted her sleep which further worsened her mood. She states her outpatient provider recently started her on Seroquel and that she noticed a worsening in her voices shortly after starting this medication. She reports also using cocaine a few days ago however she does not feel like this could also be contributing to worsening in her voices. Patient is adamant about not being restarted on Seroquel and states since being off of this medication, her voices have quieted. She denies any current auditory hallucinations and states last hearing any voices yesterday. She reports mood swings, irritability, restlessness, hopelessness and helplessness but denies any appetite changes or energy changes. Patient denies any suicidal or homicidal ideations intent or plan. At this time patient denies any visual hallucinations. Patient denies any flight of ideas racing thoughts and increased in goal directed behavior. Patient admits to using crack cocaine and nicotine." Hospital course: Upon admission to the unit patient was directable and agreeable to commence treatment and signed adult voluntary form.. Patient got along well with other patients on the unit and followed unit protocol. Patient was compliant with the medications and denied any side effects throughout hospital course. Patient was started on Abilify and this was increased to 5 mg twice daily for psychosis/mood stabilization. Patient spoke of her stressors and engaged in therapy both group and individual. Patient was also seen by medical team for history and physical exam. Throughout the course of the hospitalization patient gradually improved with regards to mood, anxiety, sleep and became more future oriented with improved insight and judgment. On the day of discharge patient denied any suic idal or homicidal ideations intent or plan denied any auditory or visual hallucinations. The patient denied any access to guns or weapons. Patient denied any paranoia and did not endorse any delusions. Patient does have a significant history of substance abuse and was counseled on abstaining from all substances including alcohol and marijuana. Patient was offered however declined inpatient substance-abuse rehab. Patient was also counseled on the medications and need for regular compliance and was encouraged to follow-up with their outpatient appointment for mental health and also for primary care. Prior to discharge a family meeting will be arranged by high school social studies teacher to answer any questions and ensure safety upon discharge incuding making sure that guns/weapons are either removed from the home or locked away. Mental status exam: General Appearance: Patient appears to be stated age is alert, pleasant, and cooperative. Patient is in no acute distress and has improved hygiene and g rooming. Patient has red dyed hair Behavior: Patient is calmly seated without any agitated behavior. Speech: Patient's speech is fluent and nonpressured. Mood/Affect: Patient reports their mood is "good", affect is congruent and euthymic. Suicidality/Homicidality: Patient denies having any suicidal or homicidal ideation intent or plan. Perceptions: Patient denies any auditory or visual hallucinations. Though content/process: There is no evidence of any delusional thought content and thought process is linear and goal-directed. More future oriented Memory and concentration: AOX3, grossly intact for the purposes of this session. Can spell "WORLD" backwards correctly. Judgment and insight: Fair Impression: Bipolar 1 disorder with psychotic features Cocaine use disorder Nicotine dependence Plan: -Continue with discharge today as patient has improved and stabilized psychiatrically and is not currently an imminent threat to themself and/or others. Patient will remain at chronically elevated risk for harm to self and/or others due to their impulsivity and substance abuse. -Continue medications: Abilify 5 mg twice daily -Patient was counseled on the need for medication compliance and appropriate follow-up at mental health and also primary care for medical issues. Patient verbalized understanding and agreed. -Social work to help coordinate patients discharge today arrange for and conduct family meeting to ensure safety upon discharge and answer any questions/concerns. also to ensure safe home environment that guns/weapons are either removed from the home or locked away. Social work also to arrange for patients follow up appointments with [facility] for psychiatric care along with follow up with primary care provider. -Patient counseled on abstaining from recreational drugs and marijuana and alcohol. Was informed/educated on the adverse effects on their physical and mental health. Patient verbally agreed and understood. Patient was offered substance abuse treatment however declined at this time. -Patient was instructed to return to the hospital or seek immediate medical care if their psychiatric or medical symptoms do worsen or reoccur. Abnormal Labs 01/30/24 01/30/24 01/31/24 17:15 17:15 08:35 RDW 16.3 H Plt Count 475 H Glucose Triglycerides VLDL Cholesterol, Calc Urine Appearance Turbid H Urine WBC 6 H Ur Squamous Epith Cells 6 H Calcium Oxalate Crystal Moderate H Amorphous Sediment Rare H Urine Mucus Rare H Urine Yeast (Budding) Many H Urine Cocaine Screen Detected H 01/31/24 08:35 RDW Plt Count Glucose 115 H Triglycerides 226.00 H VLDL Cholesterol, Calc 45.20 H Urine Appearance Urine WBC Ur Squamous Epith Cells Calcium Oxalate Crystal Amorphous Sediment Urine Mucus Urine Yeast (Budding) Urine Cocaine Screen Vital Signs Temp 97.8 F 01/31/24 08:00 Pulse 128 H 02/02/24 08:39 Resp 16 01/31/24 08:00 BP 145/89 02/02/24 08:39 Pulse Ox 96 01/31/24 08:00 FiO2 Allergies Allergy/AdvReac Type Severity Reaction Status Date / Time No Known Allergies Allergy Verified 01/30/24 20:42 Patient Condition at Discharge: Stable Plan - Discharge Summary Discharge Rx Participant: Yes New Discharge Prescriptions: New ARIPiprazole [Abilify] 5 mg PO HS tab Nicotine 21Mg/24Hr Patch [Habitrol] 1 patch TRANSDERM DAILY 30 Days #30 patch Ibuprofen [Motrin] 600 mg PO Q6HR PRN 30 Days #90 tab PRN Reason: Moderate Pain (Scale 4 To 6) ARIPiprazole [Abilify] 5 mg PO BID 30 Days #60 tab Acetaminophen Tab [Tylenol] 650 mg PO Q4HR PRN 30 Days #90 tab PRN Reason: Mild Pain (Scale 1 To 3) Continue HYDROcodone/APAP 10-325MG [[place] 10-325] 1 tab PO BID Ferrous Sulfate [Iron (65 MG Elemental)] 325 mg PO DAILY Cyclobenzaprine [Flexeril] 5 mg PO TID 30 Days #90 tab Naproxen [Naprosyn] 500 mg PO BID-W/MEALS PRN 30 Days #60 tab PRN Reason: Pain Pregabalin [Lyrica] 150 mg PO BID Discontinued QUEtiapine FUMARATE [SEROquel XR] 150 mg PO BID Discharge Medication List HYDROcodone/APAP 10-325MG [[place] 10-325] 1 tab PO BID 01/19/24 [History] Pregabalin [Lyrica] 150 mg PO BID 01/19/24 [History] Ferrous Sulfate [Iron (65 MG Elemental)] 325 mg PO DAILY 01/30/24 [History] ARIPiprazole [Abilify] 5 mg PO BID 30 Days #60 tab 02/02/24 [Rx] ARIPiprazole [Abilify] 5 mg PO HS tab 02/02/24 [Rx] Acetaminophen Tab [Tylenol] 650 mg PO Q4HR PRN 30 Days #90 tab 02/02/24 [Rx] Cyclobenzaprine [Flexeril] 5 mg PO TID 30 Days #90 tab 02/02/24 [Rx] Ibuprofen [Motrin] 600 mg PO Q6HR PRN 30 Days #90 tab 02/02/24 [Rx] Naproxen [Naprosyn] 500 mg PO BID-W/MEALS PRN 30 Days #60 tab 02/02/24 [Rx] Nicotine 21Mg/24Hr Patch [Habitrol] 1 patch TRANSDERM DAILY 30 Days #30 patch 02/02/24 [Rx] Follow up Appointment(s)/Referral(s): [facility] [Outside] - 02/02/24 5:45 pm (02/01 @ 5:45pm-7:30pm Kendy Coyle 02/08 @ 5:45pm-7:30pm Kendy Coyle 02/15 @ 11:30-12:00 Teri Estrada 02/15 @ 5:45pm-7:30pm Kendy Coyle) Bakari Larson DO [REFERRING] - 1 Week Patient Instructions/Handouts: How to Stop Smoking (DC), Cocaine Abuse (DC), Bipolar Disorder (DC) Activity/Diet/Wound Care/Special Instructions: Avoid the use of street drugs and alcohol. Take all medications as prescribed. When you are in need of refills on your medications, please contact your medical provider and/or outpatient psychiatrist/provider to have this done. Please go to your scheduled outpatient appointment for aftercare treatment. If symptoms return or become worse, call the crisis line at and/or go to the nearest emergency room for evaluation. National Suicide Hotline 399
== END 2024-02-02 11:25 | disposition home or self-care (01) | DRG 753 ==
LOC: EC 15:35 → 3MHU 20:13
PROVIDERS: ADMIT Psychiatry & Neurology Psychiatry; ATTEND Psychiatry & Neurology Psychiatry
DX: F31.5 Bipolar disorder, current episode depressed, severe, with psychotic features (principal); E66.9 Obesity, unspecified; F14.10 Cocaine abuse, uncomplicated; F15.10 Other stimulant abuse, uncomplicated; M54.9 Dorsalgia, unspecified; G89.29 Other chronic pain; F41.9 Anxiety disorder, unspecified; F60.0 Paranoid personality disorder; R45.851 Suicidal ideations; Z79.899 Other long term (current) drug therapy; Z82.49 Family history of ischemic heart disease and other diseases of the circulatory system; Z91.52 Personal history of nonsuicidal self-harm; Z71.51 Drug abuse counseling and surveillance of drug abuser; Z87.891 Personal history of nicotine dependence
CPT/HCPCS: 80053; 80061; 80306; 81001; 81025; 82075; 82248; 83036; 84443; 85025; 87636; 99285

== ENCOUNTER → 2024-02-08 | Outpatient (CLI) | payer OTHER ==
[2024-02-08 10:59] VITALS: BP 136/78; PULSE 109; RESP 16
--- NOTE | 2024-02-08 16:05 | P.PAINPG ---
PQRS Measure Charge Sheet Comment: HISTORY OF PRESENT ILLNESS: A 33 yr old female w daughter at side presents today w severe and chronic LBP > 3 mo secondary to radiculopathy, spondylosis and facet arthropathy without myelopathy for evaluation s/p RJ L5-S1 #1. Pt states she experienced 0 % pain relief x 3 wks s/p procedure. Pt states pain level is provoked at 9 /10 in intensity, constant, localized in the L lumbar, predominantly axial, tender in character w occasional shooting pain towards the L hip and LLE. Pain is provoked by lifting and rotation. Pain is alleviated by PT x 4 wks which ended in Oct 2023, physician guided home exercises 4 weekly since Oct 2023, ice, medications, topical, repositioning and rest . Interventional procedures include RJ L5-S1 #1 Medications include [place] Belt, Ibu, Lidoderm REVIEW OF ORGAN SYSTEMS: CONSTITUTIONAL: No fevers or chills. No recent weight loss. NEUROLOGICAL: + numbness and tingling along the distal extremities. No seizure disorders or headaches. MUSCULOSKELETAL: + pain PSYCHIATRIC: Denies current depression or suicidal thoughts. Physical Examinations : Constitutional : Cooperative , not in acute distress . Neurologic : Cranial nerve II to XII intact. No focal neurological deficits. Psychiatric : alert & oriented x 3. Matching mood & appropriate affect. Judgment & insight intact. Musculoskeletal : Cervical Spine Motor strength in the deltoid and biceps: Normal right side. Normal Left side Motor strength biceps and the wrist extensors: Normal right side . Normal left side Motor strength in the triceps muscle: Normal right side. Normal left side Deep tendon reflexes: Normal at the biceps. Normal at Brachioradialis. Normal at triceps Vertebral body tenderness to deep palpation over Cervical facet loading test: positive bilaterally Spurling test: positive bilaterally Neck distraction test: positive bilaterally Boy sign: positive bilaterally Lumbar spine Motor strength lower extremities ,thigh and legs 5/5 Right side , 5/5 Left side Deep tendon reflexes : Normal Knee Jerk. Normal Ankle Jerk Vertebral body tenderness over L5 Farnsworth Test positive BL L5-S1 Lumbar facet Loading Test: positive Right / positive Left Range of motion of the lumbar spine Flexion 30 degrees, extension 10 degrees Straight Leg Raise test: Left/ Right positive at degrees Doroteo test: positive right / positive left. Severe tenderness over the Sacroiliac joint on the Right / Left sides Gaenslen test: positive bilaterally Seated flexion test: positive bilaterally. Sacral spine : Severe tenderness over the Sacroiliac joint: right side / left side Range of motion: Flexion of the lumbar spine <60 degrees Range of motion: Extension of the lumba r spine <20 degrees Gaenslen's Test positive Doroteo test: positive right side / left side Thigh Thrust Test Sacral Thrust Test Imaging: MRI non contrast lumbar spine from 11/02/23 reviewed Assessment/ Plan : L5-S1 radiculopathy Recommendation of repeat MRI lumbar spine s/p 2 falls M54.16. MAPS Overdose score > 580 so no new narcotic agreement at this time. Pt promised to follow up w Dr Lai to explore additional treatment options. All questions answered. I have spent greater than 30 minutes on patient care today. Dr Jean Baptiste was available by phone for the evaluation of this patient. The time was used to review the medical records including relevant urine studies and Prescription history (MAPs), review of the available imaging, evaluation and examination of the patient, coordination of care with the medical staff and if applicable referring physicians, as well as creation of the medical record - Pain Location Lower Back Non-Pharmacological Interventions: Heat Pharmacological Interventions: Epidural, PRN Medication, Scheduled Medication PQRS Narrative: Hx Alcohol Use (MH) No Home Medications: Ambulatory Orders HYDROcodone/APAP 10-325MG [[place] 10-325] 1 tab PO BID 01/19/24 Pregabalin [Lyrica] 150 mg PO BID 01/19/24 Ferrous Sulfate [Iron (65 MG Elemental)] 325 mg PO DAILY 01/30/24 ARIPiprazole [Abilify] 5 mg PO BID 30 Days #60 tab 02/02/24 ARIPiprazole [Abilify] 5 mg PO HS tab 02/02/24 Acetaminophen Tab [Tylenol] 650 mg PO Q4HR PRN 30 Days #90 tab 02/02/24 Cyclobenzaprine [Flexeril] 5 mg PO TID 30 Days #90 tab 02/02/24 Ibuprofen [Motrin] 600 mg PO Q6HR PRN 30 Days #90 tab 02/02/24 Naproxen [Naprosyn] 500 mg PO BID-W/MEALS PRN 30 Days #60 tab 02/02/24 Nicotine 21Mg/24Hr Patch [Habitrol] 1 patch TRANSDERM DAILY 30 Days #30 patch 02/02/24 Controlled Substance Measures - Controlled Substance Measures Is patient prescribed a controlled substance at discharge?: No
== END ==
LOC: PNWHC3 10:25
PROVIDERS: ATTEND Specialist
DX: M54.17 Radiculopathy, lumbosacral region (principal)
CPT/HCPCS: 99211

== ENCOUNTER → 2024-03-07 | Outpatient (CLI) | payer OTHER ==
--- NOTE | 2024-03-07 15:36 | MR ---
EXAMINATION TYPE: MR lumbar spine wo con DATE OF EXAM: 03/07/2024 3:13 PM COMPARISON: 11/02/2023 CLINICAL INDICATION: Female, 33 years old with history of M54.16 RADICULOPATHY, LUMBAR REGION, Low b ack pain into left side x1.5 yrs, Falls unexpectedly TECHNIQUE: Multiplanar, multisequence images of the lumbar spine were acquired. IV Contrast: mL (None, if empty) FINDINGS: L5-S1: Broad-based central disc herniation is present with anterior thecal sac contact. There is incr eased signal on T2-weighted sequences within the posterior inferior disc space likely related to an a nnular tear. No AP spinal canal stenosis evident No foraminal stenosis. L4-L5: No significant disc bulge or disc herniation. No spinal canal stenosis. No foraminal stenosi s. L3-L4: No significant disc bulge or disc herniation. No spinal canal stenosis. No foraminal stenosi s. L2-L3: No significant disc bulge or disc herniation. No spinal canal stenosis. No foraminal stenosi s. L1-L2: No significant disc bulge or disc herniation. No spinal canal stenosis. No foraminal stenosi s. T12-L1: No significant disc bulge or disc herniation. No spinal canal stenosis. No foraminal stenos is. IMPRESSION: 1. L5-S1 Broad-based disc central bulge with minimal anterior thecal sac contact without spinal canal stenosis. 2. New annular tear inferior L5-S1. [facility], , 03/07/2024 3:33 PM
== END | disposition home or self-care (01) ==
LOC: RADMRIMAIN 14:19
PROVIDERS: ATTEND Specialist
DX: M51.17 Intervertebral disc disorders with radiculopathy, lumbosacral region (principal)
CPT/HCPCS: 72148

== ENCOUNTER → 2024-03-29 | Outpatient (CLI) | payer OTHER ==
[2024-03-29 11:00] VITALS: BP 138/96; PULSE 96; RESP 16; TEMP 98
--- NOTE | 2024-03-29 13:37 | P.PAINPG ---
Objective - Vital Signs Vital signs: Vital Signs Temp 98.0 F 03/29/24 10:42 Pulse 96 03/29/24 10:42 Resp 16 03/29/24 10:42 BP 138/96 03/29/24 10:42 Pulse Ox 95 03/29/24 10:42 FiO2 Intake & Output 03/28/24 03/29/24 03/29/24 18:59 06:59 18:59 Weight 98.883 kg PQRS Measure Charge Sheet Mode of Arrival: Ambulatory Comment: HISTORY OF PRESENT ILLNESS: A 33 yr old female w daughter at side presents today w severe and chronic LBP > 3 mo secondary to radiculopathy, spondylosis and facet arthropathy without myelopathy for evaluation s/p RJ L5-S1 #1. Pt states she experienced 0 % pain relief x 3 wks s/p procedure. Pt states pain level is provoked at 9 /10 in intensity, constant, localized in the L lumbar, predominantly axial, tender in character w occasional shooting pain towards the L hip and LLE. Pain is provoked by lifting and rotation. Pain is alleviated by PT x 4 wks which ended in Oct 2023, physician guided home exercises 4 weekly since Oct 2023, ice, medications, topical, repositioning and rest . Interventional procedures include RJ L5-S1 #1 Medications include [place], Ibu, Lidoderm REVIEW OF ORGAN SYSTEMS: CONSTITUTIONAL: No fevers or chills. No recent weight loss. NEUROLOGICAL: + numbness and tingling along the distal extremities. No seizure disorders or headaches. MUSCULOSKELETAL: + pain PSYCHIATRIC: Denies current depression or suicidal thoughts. Physical Examinations : Constitutional : Cooperative , not in acute distress . Neurologic : Cranial nerve II to XII intact. No focal neurological deficits. Psychiatric : alert & oriented x 3. Matching mood & appropriate affect. Judgment & insight intact. Musculoskeletal : Cervical Spine Motor strength in the deltoid and biceps: Normal right side. Normal Left side Motor strength biceps and the wrist extensors: Normal right side . Normal left side Motor strength in the triceps muscle: Normal right side. Normal left side Deep tendon reflexes: Normal at the biceps. Normal at Brachioradialis. Normal at triceps Vertebral body tenderness to deep palpation over Cervical facet loading test: positive bilaterally Spurling test: positive bilaterally Neck distraction test: positive bilaterally Boy sign: positive bilaterally Lumbar spine Motor strength lower extremities ,thigh and legs 5/5 Right side , 5/5 Left side Deep tendon reflexes : Normal Knee Jerk. Normal Ankle Jerk Vertebral body tenderness over L5 Farnsworth Test positive BL L5-S1 Lumbar facet Loading Test: positive Right / positive Left Range of motion of the lumbar spine Flexion 30 degrees, extension 10 degrees Straight Leg Raise test: Left/ Right positive at degrees Doroteo test: positive right / positive left. Severe tenderness over the Sacroiliac joint on the Right / Left sides Gaenslen test: positive bilaterally Seated flexion test: positive bilaterally. Sacral spine : Severe tenderness over the Sacroiliac joint: right side / left side Range of motion: Flexion of the lumbar spine <60 degrees Range of motion: Extension of the lumbar spine <20 degrees Gaenslen's Test positive Doroteo test: positive right side / left side Thigh Thrust Test Sacral Thrust Test Imaging: MRI non contrast lumbar spine from 11/02/23 reviewed Assessment/ Plan : L5-S1 radiculopathy Recommendation of PT integrated w traction x 6 wks M54.16 and follow up w Dr Lai to explore additional treatment options. Flexeril 10mg #90 w 1 RF. Use, side effects, adverse reactions, safe storage discussed. MAPS Overdose score > 580 so no new narcotic agreement at this time. All questions answered. I have spent greater than 30 minutes on patient care today. Dr Jean Baptiste was available by phone for the evaluation of this patient. The time was used to review the medical records including relevant urine studies and Prescription history ([facility]), review of the available imaging, evaluation and examination of the patient, coordination of care with the medical staff and if applicable referring physicians, as well as creation of the medical record - Pain Location Lower Back Non-Pharmacological Interventions: Position/Reposition Pharmacological Interventions: Discuss Pain Med Options PQRS Narrative: Blood Pressure 138/96 Pain Intensity [Lower Back] 8 Scale Used Numeric (1 - 10) Hx Alcohol Use (MH) Yes: rare Home Medications: Ambulatory Orders No Known Home Medications 03/29/24 Controlled Substance Measures - Controlled Substance Measures Is patient prescribed a controlled substance at discharge?: No
== END ==
LOC: PNWHC3 10:18
PROVIDERS: ATTEND Specialist
DX: M54.16 Radiculopathy, lumbar region (principal)
CPT/HCPCS: 99211